=== PATIENT | male | born 1950 | race Caucasian/White ===

== ENCOUNTER 2017-03-17 02:42 | Inpatient (IN) | payer OTHER, MEDICARE ==
[~2017-03-17] VITALS: Ht 167.6 cm; Wt 73.0 kg
--- NOTE | 2017-03-17 02:51 | ED GI/GU/ABDOMINAL COMPLAINT ---
History of Present Illness General Chief Complaint: Abdominal Pain/Flank Pain Stated Complaint: BIBA, ABD PAIN, RECTAL BLEEDING Source: patient, family, EMS Exam Limitations: no limitations Vital Signs & Intake/Output Vital Signs & Intake/Output Vital Signs Date Time Temp Pulse Resp B/P B/P Pulse O2 O2 Flow FiO2 Mean Ox Delivery Rate 03/20 0628 99.1 74 20 136/64 94 Room Air 03/19 2231 99.2 68 20 140/70 94 03/19 1528 98.0 63 20 108/60 94 ED Intake and Output 03/20 0000 03/19 1200 Intake Total 1940 750 Output Total 1500 Balance 440 750 Intake, IV 1025 750 Intake, Oral 915 Number 2 Bowel Movements Output, Urine 1500 Allergies Coded Allergies: No Known Allergies (03/17/17) Reconcile Medications Cyclobenzaprine HCl 7.5 MG TABLET 1 TAB PO DAILY PRN BACKPAIN (Reported) Oxycodone HCl/Acetaminophen (Oxycodone-Acetaminophen 10-325) 10 MG-325 MG TABLET 1 TAB PO TIDPRN CHRONIC PAIN (Reported) Triage Nurses Notes Reviewed? yes Onset: Abrupt Duration: hour(s): (1) Timing: single episode today Location: suprapubic Radiation: no radiation Activities at Onset: sleep No Modifying Factors: none HPI: This is a 66-year-old male who presents via ambulance from home for chief complaint of rectal bleeding 1 prior to arrival. Patient states that he got up in the middle of the night to urinate. When he got back to that he had a sudden onset of cramping suprapubic abdominal pain. He thought he needed to have a bowel movement and went to sit on the toilet. He states he had a few small stools that passed and then had some bright red blood that was spinning on and that well. He is unsure if he had any blood clots. Denies feeling lightheaded. He did feel a bit dizzy. No chest pain or short of breath. No history of previous GI bleeding. 3 weeks ago he had a colonoscopy. At that time he was diagnosed with diverticulosis and he had [address] Harkins. Patient has a family history of colon cancer and gets frequent colonoscopy screenings. Denies any NSAID use. Denies any alcohol abuse. Past History Travel History Traveled to [place] past 21 day No Medical History Any Pertinent Medical History? see below for history Surgical History Surgical History: non-contributory Psychosocial History What is your primary language Mosotho Family History Hx Contributory? No Review of Systems Review of Systems Constitutional: Denies: chills, fever. EENTM: Reports: no symptoms. Respiratory: Denies: cough, short of breath, sputum production. Cardiovascular: Denies: chest pain, palpitations. GI: Reports: abdominal pain. Genitourinary: Reports: no symptoms. Musculoskeletal: Reports: no symptoms. Skin: Reports: no symptoms. Neurological/Psychological: Reports: anxiety. Hematologic/Endocrine: Reports: bleeding. Denies: bruising, polyuria, polydipsia. Immunologic/Allergic: Denies: splenectomy. All Other Systems: Reviewed and Negative Physical Exam Physical Exam General Appearance: well developed/nourished, alert, awake, anxious, mild distress Head: atraumatic, normal appearance Eyes: Bilateral: normal appearance, PERRL, EOMI. Ears, Nose, Throat, Mouth: hearing grossly normal, moist mucous membrane Neck: normal inspection, supple, full range of motion Respiratory: normal breath sounds, chest non-tender, no respiratory distress Cardiovascular: regular rate/rhythm Peripheral Pulses: 2+ radial (R), 2+ radial (L) Gastrointestinal: normal bowel sounds, soft, tenderness (SUPRAPUBIC) Rectal: NO BLOOD ON LAURITA Male Genitals: normal genitalia Extremities: normal range of motion Neurologic/Psych: no motor/sensory deficits, awake, alert, oriented x 3 Skin: intact, normal color, warm/dry Core Measures ACS in differential dx? No Severe Sepsis Present: No Septic Shock Present: No Progress Differential Diagnosis: diverticulitis, DIVERTICULAR BLEED, POST POLYPECTOMY BLEED, COLITIS, MESENTERIC ISCHEMIA Plan of Care: Orders Procedure Date/time Status Nothing by Mouth 03/20 B Active CBC WITHOUT DIFFERENTIAL 03/20 06 Complete Enema 03/20 UNK Active Full Liquid Diet 03/19 D Complete CULTURE,STOOL 03/19 1530 Active Current Medications Sig/Deisy Start time Last Medication Dose Stop Time Status Admin Metronidazole 500 MG Q8 03/19 2200 AC 03/20 (Flagyl) 0559 Ciprofloxacin 500 MG BID 03/18 2200 AC 03/19 (Cipro) 03/22 Hyoscyamine 0.125 MG Q6-PRN PRN 03/18 2100 AC (Levsin) Oxycodone/ 1 TAB Q6P PRN 03/18 1700 AC 03/20 Acetaminophen 0816 (Percocet) Sodium Chloride 1,000 ML Q13H 03/18 1500 AC 03/20 (Normal Saline 0.9%) 0804 Morphine Sulfate 2 MG Q3P PRN 03/18 1100 AC 03/20 (Morphine) 0629 Polyethylene Glycol 17 GM AT BEDTIME 03/17 2200 AC 03/19 (Miralax) 212 Senna/Docusate Sodium 2 TAB AT BEDTIME 03/17 2200 AC 03/19 (Senokot S) 212 Docusate Sodium 100 MG BID 03/17 1000 AC 03/19 (Colace) 212 Acetaminophen 1,000 MG Q8P PRN 03/17 0900 AC 03/20 (Ofirmev) 0431 Cyclobenzaprine HCl 7.5 MG DAILY PRN 03/17 0900 AC (Flexeril 5MG Tab) Diphenhydramine HCl 25 MG Q6P PRN 03/17 0845 AC (Benadryl) Ondansetron HCl 4 MG Q6P PRN 03/17 0845 AC (Zofran) Laboratory Tests 03/20/17 0643: CBC w Diff NO MAN DIFF REQ, RBC 4.67 L, MCV 88.6, MCH 30.0, RDW 13.4, MPV 7.5, Gran % 81.1 H, Lymphocytes % 10.9 L, Monocytes % 6.8, Eosinophils % 1.0, Basophils % 0.2, Absolute Granulocytes 14.7 H, Absolute Lymphocytes 2.0, Absolute Monocytes 1.2 H, Absolute Eosinophils 0.2, Absolute Basophils 0, PUBS MCHC 33.9 Microbiology 03/19 1530 STOOL: Stool Culture - COLB Patient had an episode of dark red bleeding per rectum in the emergency department, scant amount. 4:22 AM PATIENT WITH MULTIPLE AMOUNTS SCANT BRIGHT RED BLOOD PER RECTUM. LABS, CT PENDING. MORPHINE 2 MG IV ORDERED FOR CRAMPING LOWER ABDOMINAL PAIN. DR ORDONEZ #[id number] 6:15 am repaed 6:30 am (GIANNA RIZO,SHELBIE) Diagnostic Imaging: Viewed by Me: CT Scan. Discussed w/RAD: CT Scan. Radiology Impression: PATIENT: MARY PINA PRESENT AGE: 66 PATIENT ACCOUNT NO: [id number] : 51 LOCATION: [facility] ORDERING PHYSICIAN: SHELBIE KATZ MD SERVICE DATE: 03/17/17 EXAM TYPE: CAT - CT ABD & PELVIS W IV CONTRAST EXAMINATION: CT ABDOMEN AND PELVIS WITH CONTRAST CLINICAL INFORMATION: Lower abdominal pain, blood in stool COMPARISON: 09/03/2006 TECHNIQUE: Multidetector volumetric imaging was performed of the abdomen and pelvis before and after the IV administration of 95 mL of Optiray 320 intravenous contrast. Sagittal and coronal reformatted images were obtained on the technologist's workstation. DLP: 427.45 mGy-cm FINDINGS: LUNG BASES: There is mild dependent atelectasis at the lung bases. LIVER, GALLBLADDER, AND BILIARY TREE: The liver is normal in size, shape, and attenuation. No focal hepatic lesion or biliary ductal dilatation is present. The gallbladder is unremarkable with no evidence of radiopaque gallstones, gallbladder wall thickening, or obvious pericholecystic inflammatory changes. PANCREAS: Unremarkable. SPLEEN: Unremarkable. ADRENAL GLANDS: Unremarkable. KIDNEYS AND URETERS: The kidneys are normal in size, shape, and attenuation. Small low- density lesions in the mid and lower right kidney likely represent cysts. No hydronephrosis, hydroureter, or calculi seen. No perinephric stranding. BLADDER: Unremarkable. GASTROINTESTINAL TRACT: There is diffuse wall thickening of the descending colon, consistent with a colitis. There is minimal distal descending and sigmoid diverticulosis without evidence for diverticulitis. No evidence of bowel obstruction. No free fluid or free air is seen. ABDOMINAL WALL: No significant hernia is appreciated. LYMPH NODES: Normal. VASCULAR: There is mild calcification along the aorta. PELVIC VISCERA: Unremarkable. OSSEOUS STRUCTURES: Multilevel endplate osteophytes are present in the spine. IMPRESSION: Diffuse wall thickening of the descending colon, consistent with colitis. DICTATED BY: NATALY GRAY MD DATE/TIME DICTATED:03/17/17534 MED PEDS:[facility] DATE/TIME TRANSCRIBED:03/17/17534 CONFIDENTIAL, DO NOT COPY WITHOUT APPROPRIATE AUTHORIZATION. <Electronically signed in Other Vendor System> SIGNED BY: NATALY GRAY MD 03/17/17 0547 Initial ED EKG: NSR Departure Departure Time of Disposition: 05 Disposition: STILL A PATIENT Condition: Stable Clinical Impression Primary Impression: Ischemic colitis Referrals: RAFFY RIZO,ROULA Odonnell (PCP/Family) Departure Forms: Customer Survey General Discharge Information Admission Note Spoke With: BUTCH ORDONEZ MD Documentation of Exam: Documentation of any treatments & extenuating circumstances including Concerns Regarding Discharge (functional status, medication knowledge or non-compliance, living conditions, etc.) that warrant an admission rather than observation: [IV FLUIDS, CLEAR LIQUID DIET, MONITOR I/O, GI CONSULTATION, OBTAIN GI RECORDS FROM RECENT COLONOSCOPY]
--- NOTE | 2017-03-17 02:53 | NUR ---
PT BIBA FROM HOME C/O ABD PAIN, AND BLOOD IN STOOL. PT HAD COLONOSCOPY 3 WEEKS AGO WITH 5 POLYPS REMOVED. PT WOKE UP TONIGHT TO URINATE AND HAD BM WITH BLOOD NOTICED ON TOILET PAPER. DENIES N/V.
[2017-03-17] MEDS ORDERED: OXYCODONE-ACET1 EAC1 PO (03:04)
--- NOTE | 2017-03-17 03:21 | NUR ---
PT ASSISTED TO COMMODE
--- NOTE | 2017-03-17 03:37 | NUR ---
LABS SENT (1SST,1LAV,1GRAY,1BLUE,1PINK)
--- NOTE | 2017-03-17 03:53 | NUR ---
PER AB DONIS,ZAPATA, PINK, BLUE NEED TO BE REDRAWN
[2017-03-17 03:59] LABS: ABSOLUTE BASOPHIL COUNT 0 /CUMM (0.0-0.2); ABSOLUTE EOSINOPHIL COUNT 0.2 /CUMM (0.0-0.7); ABSOLUTE GRANULOCYTE CT 15.3 /CUMM (1.4-6.5); ABSOLUTE LYMPH COUNT 1.3 /CUMM (1.2-3.4); ABSOLUTE MONOCYTE COUNT 0.9 /CUMM (0.10-0.60); BASOPHIL % 0.1 % (0.0-2.0); EOSINOPHIL % 0.9 % (0-5); GRANULOCYTE % 86.3 % (42.2-75.2); HEMATOCRIT 46.2 % (42-52); MEAN CORPUSCULAR HGB 30.4 PG (27.0-31.0); MEAN CORPUSCULAR HGB CONC 34.4 G/DL (33.0-37.0); MEAN CORPUSCULAR VOLUME 88.2 FL (80.0-94.0); MEAN PLATELET VOLUME 7.7 FL (7.4-10.4); PLATELET COUNT 296 /CUMM (130-400); RBC DISTRIBUTION WIDTH 13.4 % (11.5-14.5); RED BLOOD CELL CT 5.23 /CUMM (4.70-6.10)
--- NOTE | 2017-03-17 04:09 | NUR ---
LABS REDRAWN AND SENT BY THIS [facility]. BLUE,SST,ZAPATA,PINK, LAV
[2017-03-17 04:28] LABS: PTT 28 SEC (25-37)
--- NOTE | 2017-03-17 04:30 | NUR ---
PT MEDICATED WITH MORPHINE PER EMAR. TOLERATED WELL.
[2017-03-17 04:35] LABS: WHITE BLOOD CELL COUNT 17.7 /CUMM (4.8-10.8)
--- NOTE | 2017-03-17 04:48 | NUR ---
IN TO [facility]EEVAL AND UPDATE PT
--- NOTE | 2017-03-17 05:21 | NUR ---
PT TO AND FROM CAT SCAN
--- NOTE | 2017-03-17 05:47 | CT SCAN REPORT ---
EXAMINATION: CT ABDOMEN AND PELVIS WITH CONTRAST CLINICAL INFORMATION: Lower abdominal pain, blood in stool COMPARISON: 09/03/2006 TECHNIQUE: Multidetector volumetric imaging was performed of the abdomen and pelvis before and after the IV administration of 95 mL of Optiray 320 intravenous contrast. Sagittal and coronal reformatted images were obtained on the technologist's workstation. DLP: 427.45 mGy-cm FINDINGS: LUNG BASES: There is mild dependent atelectasis at the lung bases. LIVER, GALLBLADDER, AND BILIARY TREE: The liver is normal in size, shape, and attenuation. No focal hepatic lesion or biliary ductal dilatation is present. The gallbladder is unremarkable with no evidence of radiopaque gallstones, gallbladder wall thickening, or obvious pericholecystic inflammatory changes. PANCREAS: Unremarkable. SPLEEN: Unremarkable. ADRENAL GLANDS: Unremarkable. KIDNEYS AND URETERS: The kidneys are normal in size, shape, and attenuation. Small low-density lesions in the mid and lower right kidney likely represent cysts. No hydronephrosis, hydroureter, or calculi seen. No perinephric stranding. BLADDER: Unremarkable. GASTROINTESTINAL TRACT: There is diffuse wall thickening of the descending colon, consistent with a colitis. There is minimal distal descending and sigmoid diverticulosis without evidence for diverticulitis. No evidence of bowel obstruction. No free fluid or free air is seen. ABDOMINAL WALL: No significant hernia is appreciated. LYMPH NODES: Normal. VASCULAR: There is mild calcification along the aorta. PELVIC VISCERA: Unremarkable. OSSEOUS STRUCTURES: Multilevel endplate osteophytes are present in the spine. IMPRESSION: Diffuse wall thickening of the descending colon, consistent with colitis.
--- NOTE | 2017-03-17 05:54 | NUR ---
IN TO [facility]EE[facility] PT
--- NOTE | 2017-03-17 06:08 | NUR ---
2ND LITER NS INFUSING NOW PT MEDICATED WITH MORPHINE PER EMAR FOR DIFFUSE ABD PAIN 03/27.
--- NOTE | 2017-03-17 06:57 | NUR ---
PT PROVIDED WITH CLEAR LIQUID BREAKFAST TRAY.
--- NOTE | 2017-03-17 07:17 | NUR ---
DR ORDONEZ AT BEDSIDE.
--- NOTE | 2017-03-17 08:34 | History & Physical ---
ROSEMARIE RIZO,DESIRAE 03/17/17 0833: General Information and HPI History of Present Illness: Alek is a 66-year-old man who presents to the emergency department after experiencing an episode of cramping abdominal pain in the suprapubic area, accompanied by some tenesmus after which she proceeded to the toilet to defecate. After passing what he assumed to be a normal bowel movement, the patient noted that there was bright red blood. He only had one episode of hematochezia. There was some associated dizziness after the bowel movement which resolved. He denies melanotic stool, history of NSAID or recent antibiotics use, history of colonic malignancy (recent colonoscopy 3 weeks ago at [facility] revealed 3 diminutive polyps, pathology report pending), personal and family history of thromboembolic disease or bleeding diathesis. On further review, he denies any lightheadedness or dizziness at present, visual changes, cough, ear pain, shortness of breath, chest pain or discomfort, nausea vomiting diarrhea, dysuria or polyuria or any other symptoms after review in detail. 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 Home Who Do You Live With? spouse Services at Home: None Primary Language: Kazakh Smoking Status: Never Smoked ETOH Use: occasional use Illicit Drug Use: denies illicit drug use Employment History Employment Employed Profession/Employer [employer] Review of Systems Review of Systems Constitutional: Denies: see HPI. All Other Systems: Reviewed and Negative Exam & Diagnostic Data Last 24 Hrs of Vital Signs/I&O Vital Signs Date Time Temp Pulse Resp B/P B/P Pulse O2 O2 Flow FiO2 Mean Ox Delivery Rate 04/30 0935 98.0 66 16 134/76 96 Room Air 03/17 0549 97.2 63 18 125/65 96 Room Air 03/17 0548 97.2 60 17 138/88 99 Room Air 03/17 0302 Room Air 03/17 0245 96.3 62 20 142/92 100 Room Air Intake & Output 03/17 1600 03/17 0800 03/17 0000 Intake Total 1000 Output Total Balance 1000 Intake, IV 1000 Patient 160 lb Weight Weight Reported by Patient Measurement Method Physical Exam General Appearance Alert, Oriented X3, Cooperative, No Acute Distress Skin No Rashes, No Breakdown, No Significant Lesion Skin Temp/Moisture Exam: Warm/Dry Sepsis Skin Exam (color): Normal for Ethnicity HEENT Atraumatic, PERRLA Neck Supple Lymphatic Cervical nl Cardiovascular Regular Rate, Normal S1, Normal S2, No Murmurs Lungs Clear to Auscultation, Normal Air Movement Abdomen Normal Bowel Sounds, Soft, No Tenderness, No Hepatospenomegaly, No Masses Neurological Normal Speech, Strength at 5/5 X4 Ext, Normal Tone, Cranial Nerves 3-12 NL Extremities No Clubbing, No Cyanosis, No Edema, Normal Pulses, No Tenderness/ Swelling Vascular Normal Pulses, Pulses Symmetrical Sepsis Peripheral Pulse Location: Radial Sepsis Peripheral Pulse Exam: Normal Sepsis Cap Refill Exam: <2 Sec Rectal No Fissures, No Hemorrhoids Last 24 Hrs of Labs/Justin: Laboratory Tests 03/17/17 0549: Lactic Acid Cancelled 03/17/17 0406: Anion Gap 12, Estimated GFR > 60, BUN/Creatinine Ratio 25.6 H, Glucose 91, Lactic Acid 1.7, Calcium 9.0, Total Bilirubin 1.0, AST 24, ALT 32, Alkaline Phosphatase 65, Total Protein 6.8, Albumin 4.2, Globulin 2.6, Albumin/Globulin Ratio 1.6, Amylase 237 H, Lipase 1270 H, PT 11.0, INR 1.05, APTT 28 03/17/17 0334: CBC w Diff NO MAN DIFF REQ, RBC 5.23, MCV 88.2, MCH 30.4, RDW 13.4, MPV 7.7, Gran % 86.3 H, Lymphocytes % 7.5 L, Monocytes % 5.2, Eosinophils % 0.9, Basophils % 0.1, Absolute Granulocytes 15.3 H, Absolute Lymphocytes 1.3, Absolute Monocytes 0.9 H, Absolute Eosinophils 0.2, Absolute Basophils 0, PUBS MCHC 34.4 Microbiology 03/17 0936 STOOL: Clostridium difficile Toxin A & B - ORD Diagnostic Data EKG Results SINUS RHYTHM Other Results SERVICE DATE: 03/17/17 EXAM TYPE: CAT - CT ABD & PELVIS W IV CONTRAST EXAMINATION: CT ABDOMEN AND PELVIS WITH CONTRAST CLINICAL INFORMATION: Lower abdominal pain, blood in stool COMPARISON: 09/03/2006 TECHNIQUE: Multidetector volumetric imaging was performed of the abdomen and pelvis before and after the IV administration of 95 mL of Optiray 320 intravenous contrast. Sagittal and coronal reformatted images were obtained on the technologist's workstation. DLP: 427.45 mGy-cm FINDINGS: LUNG BASES: There is mild dependent atelectasis at the lung bases. LIVER, GALLBLADDER, AND BILIARY TREE: The liver is normal in size, shape, and attenuation. No focal hepatic lesion or biliary ductal dilatation is present. The gallbladder is unremarkable with no evidence of radiopaque gallstones, gallbladder wall thickening, or obvious pericholecystic inflammatory changes. PANCREAS: Unremarkable. SPLEEN: Unremarkable. ADRENAL GLANDS: Unremarkable. KIDNEYS AND URETERS: The kidneys are normal in size, shape, and attenuation. Small low-density lesions in the mid and lower right kidney likely represent cysts. No hydronephrosis, hydroureter, or calculi seen. No perinephric stranding. BLADDER: Unremarkable. GASTROINTESTINAL TRACT: There is diffuse wall thickening of the descending colon, consistent with a colitis. There is minimal distal descending and sigmoid diverticulosis without evidence for diverticulitis. No evidence of bowel obstruction. No free fluid or free air is seen. ABDOMINAL WALL: No significant hernia is appreciated. LYMPH NODES: Normal. VASCULAR: There is mild calcification along the aorta. PELVIC VISCERA: Unremarkable. OSSEOUS STRUCTURES: Multilevel endplate osteophytes are present in the spine. IMPRESSION: Diffuse wall thickening of the descending colon, consistent with colitis. Assessment/Plan Assessment: Alek is a 66 year old man with a medical hx of Macular "puckering", chronic back pain secondary to degenerative disc disease, vasovagal syncope secondary to pain from chronic back pain that's secondary to the aforementioned degenerative disc disease, who is now admitted with abdominal pain, BRBPR presumed to be due to ischemic colitis given CT findings. He does not have CAD, or peripheral arterial disease, history suggestive of underlying coagulopathy. Differential should include bacterial colitis, hemorrhoidal bleeding, colonic malignancy, pancreatitis. IBD is unlikely. - Problems - LGIB Colitis; Ischemic vs bacterial Chronic back pain 2/2 DJD - Plan - Keep npo for now Type & screen 2 large bore IVs Unasyn 3g q6 Maintenance IVFs Morphine 2mg iv q4h for pain Zofran prn nausea Benadryl, bowel regimen Check amylase/lipase Await Gi and Surgical evaluation DVT ppx alps As Ranked By This Provider Problem List: 1. Ischemic colitis 2. GI bleed Core Measures/Miscellaneous Acute Coronary Syndrome ACS Diagnosis: No Cerebrovascular Accident CVA/TIA Diagnosis: No Congestive Heart Failure CHF Diagnosis: No Venous Thromboembolism VTE Risk Factors: Age > 40 No [facility] VTE prophylaxis d/t: No contraindications No VTE Pharm Prophylaxis d/t: No contraindications VTE Diagnosis: No VTE Type: NONE VTE Confirmed by (Test): NONE Severe Sepsis Severe Sepsis Present: No Septic Shock Septic Shock Present: No Miscellaneous Documentation Attending Case Discussed With: BUTCH ORDONEZ MD Primary Care Physician: ROULA AKBAR MD Patient sees these Specialists n/a Level of Patient Care: General Medicine BUTCH ORDONEZ MD 03/17/17 1808: Attending MD Review Statement Attending Statement Attending MD Statement: examined this patient, discuss w/resident/PA/WIND TURBINE DESIGN ENGINEER, agreed w/resident/PA/WIND TURBINE DESIGN ENGINEER, discussed with family, reviewed EMR data (avail), discussed with nursing, discussed with case mgmt, reviewed images, amended to note Attending Assessment/Plan: 66-year-old male with a history of chronic back pain secondary to degenerative disc disease, vasovagal syncope secondary to chronic back pain and a recent colonoscopy with a diagnosis of diverticulosis and polyps presented with a 1 day history of lower abdominal cramping pain and 2 episodes of bright red bleeding per rectum. Patient is otherwise stable with no more episodes of hematochezia. CT abdomen is suggestive of colitis. GI put on board who ruled out the possibility of post polypectomy bleeding. Given no clear cut history of risk factors for a vasculopathy, however, colitis/ischemic colitis cannot be ruled out. For now we would continue conservative management, will keep him nil by mouth, IV fluids, continue antibiotics, monitor H&H, pain control, DVT prophylaxis, and reevaluation for possible endoscopic interventions. General surgical consult awaited.
--- NOTE | 2017-03-17 08:45 | NUR ---
DESIRAE HOUSTON MD AT BEDSIDE.
[2017-03-17] MEDS ORDERED: CYCLOBENZAPRIN7.5 M1 PO (08:51)
--- NOTE | 2017-03-17 09:05 | NUR ---
bed [id number]
--- NOTE | 2017-03-17 09:41 | NUR ---
REPORT CALLED TO RN. TRANSPORT CALLED.
[2017-03-17 10:20] VITALS: BP 148/80
--- NOTE | 2017-03-17 13:34 | NUR ---
NURSING NOTE: PATIENT ARRIVED TO FLOOR VIA STRETCHER WITH DISTRIBUTION FROM ER. PATIENT A/OX3, STATES PAIN IS ABOUT 3/10, BUT 4 IS NO LONGER TOLERABLE. WILL MEDICATE PER ORDERS. PATIENT INDEPENDENT TO GET INTO BED. WITH PATIENT AT BEDSIDE WITH ALL PATIENT BELONGINGS. VSS. PATIENT NPO PER ORDERS AT THIS TIME. PATIENT AWARE OF RESTRICTION. WILL CONTINUE TO MONITOR.
--- NOTE | 2017-03-17 14:21 | Cons- Gastroenterology ---
General Information and HPI Consulting Request Date of Consult: 03/17/17 Requested By: JOSÉ LUIS RIZO,BUTCH Source of Information: patient, old records Exam Limitations: no limitations History of Present Illness: Alek is a 66-year-old man who presents to the emergency department after experiencing an episode of cramping abdominal pain in the suprapubic area at 1 AM today. This was accompanied by some tenesmus after which she proceeded to the toilet to defecate. After passing what he assumed to be a normal bowel movement , the patient noted that there was bright red blood. He only had one episode of hematochezia. There was some associated dizziness after the bowel movement which resolved. He denies melanotic stool, history of NSAID or recent antibiotics use, history of colonic malignancy (recent colonoscopy 3 weeks ago at [facility] revealed 3 diminutive polyps, pathology report pending), personal and family history of thromboembolic disease or bleeding diathesis. On further review, he denies any lightheadedness or dizziness at present, visual changes, cough, ear pain, shortness of breath, chest pain or discomfort, nausea vomiting diarrhea, dysuria or polyuria or any other symptoms after review in detail. Allergies/Medications Allergies: Coded Allergies: No Known Allergies (03/17/17) Home Med List: Cyclobenzaprine HCl 7.5 MG TABLET 1 TAB PO DAILY PRN BACKPAIN (Reported) Oxycodone HCl/Acetaminophen (Oxycodone-Acetaminophen 10-325) 10 MG-325 MG TABLET 1 TAB PO TIDPRN CHRONIC PAIN (Reported) Current Medications: Current Medications Sig/Deisy Start time Last Medication Dose Route Stop Time Status Admin Acetaminophen 1,000 MG Q8P PRN 03/17 0900 AC 03/17 IV 1045 Ampicillin Sodium/ 0 .STK-MED ONE 03/17 0907 DC Sulbactam Sodium .ROUTE Ampicillin Sodium/ 3,000 MG Q6 03/17 0831 AC 03/17 Sulbactam Sodium IV 0914 Sodium Chloride 100 ML Cyclobenzaprine HCl 7.5 MG DAILY PRN 03/17 0900 AC PO Diphenhydramine HCl 25 MG Q6P PRN 03/17 0845 AC IV Docusate Sodium 100 MG BID 03/17 1000 AC PO Lactated Ringer's 1,000 ML .Q3H20M 03/17 1115 AC 03/17 IV 03/17 1754 1128 Morphine Sulfate 0 .STK-MED ONE 03/17 0907 DC .ROUTE Morphine Sulfate 2 MG Q4P PRN 03/17 0845 AC 03/17 IV 0914 Morphine Sulfate 4 MG ONCE ONE 03/17 0615 DC 03/17 IV 03/17 0616 0608 Morphine Sulfate 0 .STK-MED ONE 03/17 0601 DC .ROUTE Morphine Sulfate 2 MG ONCE ONE 03/17 0430 DC 03/17 IV 03/17 0431 0430 Morphine Sulfate 0 .STK-MED ONE 03/17 0428 DC .ROUTE Ondansetron HCl 4 MG Q6P PRN 03/17 0845 AC IV Polyethylene Glycol 17 GM AT BEDTIME 03/17 2200 AC PO Senna/Docusate Sodium 2 TAB AT BEDTIME 03/17 2200 AC PO Sodium Chloride 1,000 ML Q13H 03/17 1000 DC 03/17 IV 1045 Sodium Chloride 1,000 ML BOLUS ONE 03/17 0615 DC 03/17 IV 03/17 0714 0608 Sodium Chloride 1,000 ML BOLUS ONE 03/17 0300 DC 03/17 IV 03/17 0359 0258 Past History Travel History Traveled to [place] past 21 day No Medical History Blood Transfusion Hx: No Neurological: NONE EENT: NONE Cardiovascular: NONE Respiratory: bronchitis, pneumonia Gastrointestinal: diverticulitis Hepatic: hepatitis B Renal: NONE Musculoskeletal: osteoarthritis, DEGEN DISK DISEASE Psychiatric: NONE Endocrine: NONE Blood Disorders: NONE 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 Home Who Do You Live With? spouse Services at Home: None Primary Language: Croatian Smoking Status: Never Smoked ETOH Use: occasional use Illicit Drug Use: denies illicit drug use Employment History Employment: Employed Profession/Employer: [employer] Review of Systems Review of Systems: At present feeling reasonably well. Has some mild lower abdominal pain. No nausea or vomiting. No presyncope syncope fevers chills. Exam & Diagnostic Data Vital Signs and I&O Vital Signs Date Time Temp Pulse Resp B/P B/P Pulse O2 O2 Flow FiO2 Mean Ox Delivery Rate 03/17 1020 99.3 54 18 148/80 96 Room Air 03/17 0935 98.0 66 16 134/76 96 Room Air 03/17 0549 97.2 63 18 125/65 96 Room Air 03/17 0548 97.2 60 17 138/88 99 Room Air 03/17 0302 Room Air 03/17 0245 96.3 62 20 142/92 100 Room Air Intake & Output 03/17 1600 03/17 0400 03/16 0400 03/15 1600 03/15 0400 Intake Total 1000 Output Total Balance 1000 Intake, IV 1000 Patient 160 lb 160 lb Weight Weight Reported by Patient Reported by Patient Measurement Method Physical Exam General Appearance Alert, Oriented X3, Cooperative, No Acute Distress Skin No Rashes, No Breakdown, No Significant Lesion Skin Temp/Moisture Exam: Warm/Dry Sepsis Skin Exam (color): Normal for Ethnicity HEENT Atraumatic, PERRLA Neck Supple Lymphatic Cervical nl Cardiovascular Regular Rate, Normal S1, Normal S2, No Murmurs Lungs Clear to Auscultation, Normal Air Movement Abdomen Normal Bowel Sounds, Soft, No Tenderness, No Hepatospenomegaly, No Masses. No rebound Neurological Normal Speech, Strength at 5/5 X4 Ext, Normal Tone, Cranial Nerves 3-12 NL Extremities No Clubbing, No Cyanosis, No Edema, Normal Pulses, No Tenderness/ Swelling Vascular Normal Pulses, Pulses Symmetrical Perineum appeared healthy. No external hemorrhoids fistulas or obvious source of bleeding. Physical Exam: x Assessment/Plan Assessment/Recommendations: Patient is a 66-year-old gentleman with a recent colonoscopy and polypectomy who presents with cramping lower abdominal pain and 3-4 episodes of hematochezia. He has not had any further hematochezia in the last 9 hours. In view of the colonoscopy and polypectomy the possibility of post-polypectomy bleeding needs to be considered. However 3 weeks is quite late for such a bleed and in addition to CT scan suggests a colitis. In terms of the colitis and ischemic colitis seems most likely, however the patient does not have any clear history of risk factors for being a vasculopath, no evidence of arrhythmias. Would suggest conservative treatment for now. Nothing by mouth. Continue antibiotics. Will reevaluate in the morning regarding endoscopic interventions. Consult Acknowledgment - Thank you for your consult request.
--- NOTE | 2017-03-17 18:07 | Cons- General Surgery ---
General Information and HPI Consulting Request Date of Consult: 03/17/17 Requested By: BUTCH ORDONEZ MD History of Present Illness: CC: abdominal pain Otherwise healthy 66-year-old nondiabetic nonsmoker who had a colonoscopy in 4-5 polypectomies about a month ago otherwise no recent straining unusual meals or history of rectal bleeding or changes in bowel habits weight or appetite, but he comes in earlier today after being awoken from sleep with severe abdominal pain mostly suprapubic constant, did not radiate, almost fainted when it started, a little better now, there was no nausea and vomiting but he did have some bloody bowel movements, so he came to the ER and was admitted and surgical consult was called as well as GI. The PFSH and ROS were reviewed, denies any bleeding problems or history of C. difficile or other infections, surgical history abdomen none family history Brother had colon cancer. Allergies/Medications Allergies: Coded Allergies: No Known Allergies (03/17/17) Home Med List: Cyclobenzaprine HCl 7.5 MG TABLET 1 TAB PO DAILY PRN BACKPAIN (Reported) Oxycodone HCl/Acetaminophen (Oxycodone-Acetaminophen 10-325) 10 MG-325 MG TABLET 1 TAB PO TIDPRN CHRONIC PAIN (Reported) Current Medications: I reviewed Current Medications Sig/Deisy Start time Last Medication Dose Route Stop Time Status Admin Acetaminophen 1,000 MG Q8P PRN 03/17 0900 AC 03/17 IV 1045 Ampicillin Sodium/ 3,000 MG Q6H 03/17 2000 AC Sulbactam Sodium IV Sodium Chloride 100 ML Ampicillin Sodium/ 0 .STK-MED ONE 03/17 0907 DC Sulbactam Sodium .ROUTE Ampicillin Sodium/ 3,000 MG Q6 03/17 0831 DC 03/17 Sulbactam Sodium IV 1421 Sodium Chloride 100 ML Cyclobenzaprine HCl 7.5 MG DAILY PRN 03/17 0900 AC PO Diphenhydramine HCl 25 MG Q6P PRN 03/17 0845 AC IV Docusate Sodium 100 MG BID 03/17 1000 AC PO Lactated Ringer's 1,000 ML .Q3H20M 03/17 1115 DC 03/17 IV 03/17 1754 1646 Morphine Sulfate 0 .STK-MED ONE 03/17 0907 DC .ROUTE Morphine Sulfate 2 MG Q4P PRN 03/17 0845 AC 03/17 IV 1428 Morphine Sulfate 4 MG ONCE ONE 03/17 0615 DC 03/17 IV 03/17 0616 0608 Morphine Sulfate 0 .STK-MED ONE 03/17 0601 DC .ROUTE Morphine Sulfate 2 MG ONCE ONE 03/17 0430 DC 03/17 IV 03/17 0431 0430 Morphine Sulfate 0 .STK-MED ONE 03/17 0428 DC .ROUTE Ondansetron HCl 4 MG Q6P PRN 03/17 0845 AC IV Polyethylene Glycol 17 GM AT BEDTIME 03/17 2200 AC PO Senna/Docusate Sodium 2 TAB AT BEDTIME 03/17 2200 AC PO Sodium Chloride 1,000 ML Q13H 03/17 1000 DC 03/17 IV 1045 Sodium Chloride 1,000 ML BOLUS ONE 03/17 0615 DC 03/17 IV 03/17 0714 0608 Sodium Chloride 1,000 ML BOLUS ONE 03/17 0300 DC 03/17 IV 03/17 0359 0258 Past History Medical History Blood Transfusion Hx: No Neurological: NONE EENT: NONE Cardiovascular: NONE Respiratory: bronchitis, pneumonia Gastrointestinal: diverticulitis Hepatic: hepatitis B Renal: NONE Musculoskeletal: osteoarthritis, DEGEN DISK DISEASE Psychiatric: NONE Endocrine: NONE Blood Disorders: NONE 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 Home Who Do You Live With? spouse Services at Home: None Primary Language: Colombian Smoking Status: Never Smoked ETOH Use: occasional use Illicit Drug Use: denies illicit drug use Employment History Employment: Employed Profession/Employer: [employer] Review of Systems Review of Systems: Constitutional: No fever, sweats or weight loss ENMT: No sore throat Cardiovascular: No chest pain, palpitations or leg swelling Respiratory: No shortness of breath, cough, or sputum or dyspnea on exertion GI: No GERD or bleeding per rectum : No dysuria or hematuria Musculoskeletal: No new muscle weakness, bone or joint pain Skin / Breast: No jaundice, rashes or itching Psychiatric: No history of drug or alcohol abuse no depression or anxiety Hematologic / lymphatic system: No problems with excessive bleeding, bruising, or blood clots Exam & Diagnostic Data Vital Signs and I&O I reviewed Vital Signs Date Time Temp Pulse Resp B/P B/P Pulse O2 O2 Flow FiO2 Mean Ox Delivery Rate 03/17 1020 99.3 54 18 148/80 96 Room Air 03/17 0935 98.0 66 16 134/76 96 Room Air 03/17 0549 97.2 63 18 125/65 96 Room Air 03/17 0548 97.2 60 17 138/88 99 Room Air 03/17 0302 Room Air 03/17 0245 96.3 62 20 142/92 100 Room Air I reviewed Intake & Output 03/17 1600 03/17 0803/17 0000 03/16 1600 03/16 0800 03/16 0000 Intake Total 900 1000 Output Total Balance 900 1000 Intake, IV 900 1000 Patient 160 lb 160 lb Weight Weight Reported by Patient Reported by Patient Measurement Method Physical Exam: Constitutional: pleasant, no acute distress, conversant Eyes: sclera anicteric ENMT: ears and nose atraumatic, moist mucous membranes, good dentition, no lip lesions Neck: Supple, trachea is midline, no cervical or supraclavicular adenopathy and no palpable thyromegaly Cardiovascular: S1, S2, no murmurs, no peripheral edema Respiratory: clear to auscultation with normal respiratory effort and no intercostal retractions GI: abdomen soft, minimal suprapubic tenderness, nondistended, no palpable hepatosplenomegaly Extremities / lymphatics: symmetrically warm, free range of motion no peripheral edema, no cervical, supraclavicular, axillary, or inguinal adenopathy Musculoskeletal: Did not evaluate gait and station, no digital cyanosis, good muscle strength and tone no atrophy, motor grossly 5 out of 5 throughout Skin: no jaundice, no rashes warm, nondiaphoretic, no areas of erythema or induration Psychiatric: mood and affect are appropriate and alert and oriented to person place and time Last 24 Hours of Labs: I reviewed Laboratory Tests 03/17 03/17 03/17 0549 0406 0334 Chemistry Sodium (137 - 145 mmol/L) 137 Potassium (3.5 - 5.1 mmol/L) 3.3 L Chloride (98 - 107 mmol/L) 102 Carbon Dioxide (22 - 30 mmol/L) 23 Anion Gap (5 - 16) 12 BUN (9 - 20 mg/dL) 23 H Creatinine (0.7 - 1.2 mg/dL) 0.9 Estimated GFR (>60 ml/min) > 60 BUN/Creatinine Ratio (7 - 25 %) 25.6 H Glucose (65 - 99 mg/dL) 91 Lactic Acid (0.7 - 2.1 mmol/L) Cancelled 1.7 Calcium (8.4 - 10.2 mg/dL) 9.0 Total Bilirubin (0.2 - 1.3 mg/dL) 1.0 AST (17 - 59 U/L) 24 ALT (21 - 72 U/L) 32 Alkaline Phosphatase (< 127 U/L) 65 Total Protein (6.3 - 8.2 g/dL) 6.8 Albumin (3.5 - 5.0 g/dL) 4.2 Globulin (1.9 - 4.2 gm/dL) 2.6 Albumin/Globulin Ratio (1.1 - 2.2 %) 1.6 Amylase (30 - 110 U/L) 237 H Lipase (23 - 300 U/L) 1270 H Coagulation PT (9.4 - 12.5 SEC) 11.0 INR (0.90 - 1.17) 1.05 APTT (25 - 37 SEC) 28 Hematology CBC w Diff NO MAN DIFF REQ WBC (4.8 - 10.8 /CUMM) 17.7 H RBC (4.70 - 6.10 /CUMM) 5.23 Hgb (14.0 - 18.0 G/DL) 15.9 Hct (42 - 52 %) 46.2 MCV (80.0 - 94.0 FL) 88.2 MCH (27.0 - 31.0 PG) 30.4 RDW (11.5 - 14.5 %) 13.4 Plt Count (130 - 400 /CUMM) 296 MPV (7.4 - 10.4 FL) 7.7 Gran % (42.2 - 75.2 %) 86.3 H Lymphocytes % (20.5 - 51.1 %) 7.5 L Monocytes % (1.7 - 9.3 %) 5.2 Eosinophils % (0 - 5 %) 0.9 Basophils % (0.0 - 2.0 %) 0.1 Absolute Granulocytes (1.4 - 6.5 /CUMM) 15.3 H Absolute Lymphocytes (1.2 - 3.4 /CUMM) 1.3 Absolute Monocytes (0.10 - 0.60 /CUMM) 0.9 H Absolute Eosinophils (0.0 - 0.7 /CUMM) 0.2 Absolute Basophils (0.0 - 0.2 /CUMM) 0 PUBS MCHC (33.0 - 37.0 G/DL) 34.4 Assessment/Plan Assessment/Plan Studies I reviewed today's CT scan on PACS myself and shows a non-dilated but thickened descending colon no free fluid or bowel obstruction. Elevated amylase and lipase but otherwise normal LFTs noted Impression is lower GI bleed, which does not appear to be hemodynamically significant or ongoing, elevated amylase lipase, slight thickening of descending colon and leukocytosis he might have colitis agree with empiric antibiotics may be somehow related to recent colonoscopy, because otherwise there are no obvious clues to the etiology, but overall there is no signs of obstruction or perforation requiring surgery at the present time usually this is managed medically. Continue present care repeat all labs in the morning. Problem List: 1. GI bleed 2. Colitis 3. Abdominal pain Consult Acknowledgment - Thank you for your consult request.
[2017-03-17 21:55] VITALS: BP 122/80
[2017-03-18 07:35] VITALS: BP 130/78
[2017-03-18 08:05] LABS: ABSOLUTE BASOPHIL COUNT 0.1 /CUMM (0.0-0.2); ABSOLUTE EOSINOPHIL COUNT 0.1 /CUMM (0.0-0.7); ABSOLUTE GRANULOCYTE CT 14.5 /CUMM (1.4-6.5); ABSOLUTE LYMPH COUNT 1.3 /CUMM (1.2-3.4); ABSOLUTE MONOCYTE COUNT 1.2 /CUMM (0.10-0.60); BASOPHIL % 0.5 % (0.0-2.0); EOSINOPHIL % 0.8 % (0-5); HEMATOCRIT 42.1 % (42-52); MEAN CORPUSCULAR HGB 29.8 PG (27.0-31.0); MEAN CORPUSCULAR HGB CONC 33.5 G/DL (33.0-37.0); MEAN CORPUSCULAR VOLUME 88.8 FL (80.0-94.0); MEAN PLATELET VOLUME 7.7 FL (7.4-10.4); PLATELET COUNT 250 /CUMM (130-400); RBC DISTRIBUTION WIDTH 13.3 % (11.5-14.5); RED BLOOD CELL CT 4.74 /CUMM (4.70-6.10); WHITE BLOOD CELL COUNT 17.3 /CUMM (4.8-10.8)
--- NOTE | 2017-03-18 08:17 | PN- Housestaff ---
EMMANUEL RIZO,JOSE DE JESUS 03/18/17 0816: Subjective Follow-up For: Colitis BRBPR Subjective: Patient seen and examined. He is seen sitting in a chair in the common area speaking with his . He appears to be in no acute distress. He reports that his adbominal pain is well controlled, stating its only about "3-/10". He denies any further bright red blood per rectum. He states that he is hungry and is requesting to eat. Additionally he denies any fever, chills, chest pain, shortness of breath, nausea, vomiting, diarrhea. No overnight events reported. Review of Systems Constitutional: Reports: see HPI. Objective Last 24 Hrs of Vital Signs/I&O Vital Signs Date Time Temp Pulse Resp B/P B/P Pulse O2 O2 Flow FiO2 Mean Ox Delivery Rate 03/18 1408 98.2 59 20 124/67 94 Room Air 03/18 0735 98.2 64 20 130/78 95 Room Air 03/17 2155 99.2 65 20 122/80 94 Intake & Output 03/18 1600 03/18 0800 03/18 0000 Intake Total 650 800 35210 Output Total Balance 650 800 02437 Intake, IV 650 800 22960 Physical Exam General Appearance: Alert, Oriented X3, Cooperative, No Acute Distress Other Physical Findings: General- well developed, well nourished elderly man in no acute distress HEENT- NCAT, PERRL, EOMI, anicteric sclera CVS- S1, S2 w/o m/g/r Resp - CTA bilaterally GI- Soft, nontender, nondistended, bowel sounds intact Neuro- Awake and alert, CN II - XII grossly intact Ext- normal pulses, no cyanosis/clubbing/edema Current Medications: Current Medications Sig/Deisy Start time Last Medication Dose Route Stop Time Status Admin Acetaminophen 325 MG .STK-MED ONE 03/18 0425 DC PO 03/18 042 Acetaminophen 1,000 MG Q8P PRN 03/17 09 AC 03/18 IV 1325 Ampicillin Sodium/ 3,000 MG Q6H 03/17 2000 DC 03/18 Sulbactam Sodium IV 1423 Sodium Chloride 100 ML Ciprofloxacin 500 MG BID 03/18 2200 AC PO 03/22 2159 Cyclobenzaprine HCl 7.5 MG DAILY PRN 03/17 09 AC PO Diphenhydramine HCl 25 MG Q6P PRN 03/17 0845 AC IV Docusate Sodium 100 MG BID 03/17 1000 AC PO Metronidazole 500 MG IQ8 03/19 0000 AC N/A 1 UNIT IV Morphine Sulfate 2 MG Q3P PRN 03/18 1100 AC 03/18 IV 1833 Morphine Sulfate 2 MG Q4P PRN 03/17 0845 DC 03/18 IV 0620 Ondansetron HCl 4 MG Q6P PRN 03/17 0845 AC IV Oxycodone/ 1 TAB Q6P PRN 03/18 1700 AC 03/18 Acetaminophen PO 1750 Patient Medication 1 ED .STK-MED ONE 03/18 1401 [place] Teaching ED 03/18 1402 Polyethylene Glycol 17 GM AT BEDTIME 03/17 2200 AC PO Senna/Docusate Sodium 2 TAB AT BEDTIME 03/17 2200 AC PO Sodium Chloride 1,000 ML Q13H 03/18 1500 AC 03/18 IV 1400 Sodium Chloride 1,000 ML Q13H 03/17 2100 DC 03/17 IV 03/18 0959 2222 Last 24 Hrs of Lab/Justin Results Last 24 Hrs of Labs/Mics: Laboratory Tests 03/18/17 0618: Anion Gap 10, Estimated GFR > 60, BUN/Creatinine Ratio 11.1, CBC w Diff NO MAN DIFF REQ, RBC 4.74, MCV 88.8, MCH 29.8, RDW 13.3, MPV 7.7, Gran % 84.1 H, Lymphocytes % 7.7 L, Monocytes % 6.9, Eosinophils % 0.8, Basophils % 0.5, Absolute Granulocytes 14.5 H, Absolute Lymphocytes 1.3, Absolute Monocytes 1.2 H, Absolute Eosinophils 0.1, Absolute Basophils 0.1, PUBS MCHC 33.5 Microbiology 03/18 1730 STOOL: Cryptosporidium Antigen - RECD 03/18 1730 STOOL: Giardia Antigen (JUSTIN) - RECD 03/18 1730 STOOL: Clostridium difficile Toxin A & B - RECD Assessment/Plan Assessment: Patient was kept NPO overnight in anticipation of a potential endoscopic procedure. This morning patient reports that his pain is well controlled on the current medication regimen. He otherwise feels fine and is requesting to eat. His white blood cell count remains elevated while on intravenous antibiotics. Dr. Klaus Zamora was updated in regards to these findings and it was determiend that patient should be trialed on a clear liquid diet that may be advanced as tolerated and that his antibiotics should be converted to Ciprofloxacin/Flagyl. There are no immediate plans for any endoscopic procedure. Colitis / Abdominal Pain / BRBPR / Possible Pancreatitis Patient with no known gastrointestinal history but with family history of colon cancer seen for evaluation of cramping suprapubic abdominal pain and bright red blood per rectum. Patient reportedly underwent a screening colonoscopy three weeks prior to admission at [facility] where multiple polyps were removed with pathology results pending. Vital signs upon initial evaluation were within limits. Physical examination was unremarkable, including rectal examination. CBC demonstrated WBC 17.7, Hgb/Hct 15.9/46.2, and normal serum chemistries, Lipase 1270. CT Abd/Pelvis with IV contrast demonstrated diffuse wall thickening of the descending colon consistent with colitis. Patients symptoms, presentation, and imaging findings are highly suggestive of colitis, ischemic versus infectious. Patient does not have any identifiable cardiovascular risk factors predisposing him to ischemic colitis, however it must be ruled out. -General Medicine -2 large bore IV -Type & cross -Transfuse as needed, maintain hgb > 7.0 -NS @ 75mL/hr -Unasyn discontinued -Ciprofloxacin 500mg PO BID started -Metronidazole 500mg IV Q8H started -Zofran 4mg IV Q6H PRN nausea -Clear liquid diet, advance as tolerated -GI consult following -GS consult following -Follow up cultures & sensitivies -Follow up C. diff & stool ova/parasites Pain Plain-Acetaminophen/Morphine Diet-As above DVT PPx-ALPS/Ambulation Code Status-FULL CODE Problem List: 1. Colitis Pain Ratin Pain Location: Abdomen Pain Goal: Remain pain free Pain Plan: See assessment Tomorrow's Labs & Rationales: CBC-leukocytosis FIDELIA RIZO,EAN 03/18/17 1258: Attending MD Review Statement Attending Statement Attending MD Statement: examined this patient, discuss w/resident/PA/CPHT, agreed w/resident/PA/CPHT, discussed with family, reviewed EMR data (avail), discussed with nursing, discussed with case mgmt, amended to note Attending Assessment/Plan: Patient seen and examined. Lying comfortably in bed not in acute distress. Reports feeling better this morning. Apparently had tried liquids last evening but did not tolerate this. He developed more cramping. He reports feeling better today. Denies nausea vomiting. Reports only mild abdominal cramping. On examination abdomen is nondistended, soft and nontender with normal bowel sounds. Recommendations: -We'll continue nothing by mouth status for now with IV hydration and IV antibiotic therapy. -Awaiting reevaluation by the gastroenterology service regarding possible repeat endoscopic evaluation. -Follow-up pathology reports of the polypectomy from [facility]. -Mobilize patient as tolerated. -He is currently satisfied with his current pain regimen. His pain does go as high as 7/10 but he reports relief with the use of current therapy. -Repeat CBCs and chemistry in 48 hours to ensure white cell count is improving and electrolyte levels are stable.
[2017-03-18 09:29] LABS: GRANULOCYTE % 84.1 % (42.2-75.2)
[2017-03-18 14:08] VITALS: BP 124/67
--- NOTE | 2017-03-18 20:52 | PN- Gastroenterology ---
Assessment/Plan Assessment/Recommendations: Hematochezia with stable H/H, abdominal pain. Imaging suggest colitis. Differential diagnosis includes infectious, ischemia, etc. Recommendations * Clear liquid diet * Change antibiotics to Cipro 500 mg by mouth twice a day, metronidazole 500 mg by mouth 3 times a day. * Morning CBC * Stool culture, C. difficile toxin * Anticholinergic such as the mean 10-20 mg by mouth 4 times a day when necessary, or hyoscyamine 0.125 mg to 0.25 mg by mouth 4 times a day when necessary * Possible flexible sigmoidoscopy if without improvement Subjective Subjective: Continues to have crampy lower abdominal pain which has improved. No nausea or vomiting. No upper abdominal pain. One passage of blood per rectum today. Objective Vital Signs and I&Os Vital Signs Date Time Temp Pulse Resp B/P B/P Pulse O2 O2 Flow FiO2 Mean Ox Delivery Rate 03/18 1408 98.2 59 20 124/67 94 Room Air 03/18 0735 98.2 64 20 130/78 95 Room Air 03/17 2155 99.2 65 20 122/80 94 Intake & Output 03/18 1600 03/18 0400 03/17 1600 03/17 0400 03/16 1600 03/16 0400 Intake Total 1450 88817 900 1000 Output Total Balance 1450 65467 900 1000 Intake, IV 1450 89730 900 1000 Patient 160 lb 160 lb Weight Weight Reported by Patient Reported by Patient Measurement Method Physical Exam: Skin normal with normal turgor. Pulses intact. Head and neck normal, with anicteric sclera. Abdomen is soft and nondistended with normal bowel sounds; there is left lower quadrant tenderness, but no mass or fullness. Current Medications: Current Medications Sig/Deisy Start time Last Medication Dose Route Stop Time Status Admin Acetaminophen 325 MG .STK-MED ONE 03/18 0425 DC PO 03/18 0426 Acetaminophen 1,000 MG Q8P PRN 03/17 09 AC 03/18 IV 1325 Ampicillin Sodium/ 3,000 MG Q6H 03/17 2000 DC 03/18 Sulbactam Sodium IV 1423 Sodium Chloride 100 ML Ciprofloxacin 500 MG BID 03/18 2200 AC PO 03/22 2159 Cyclobenzaprine HCl 7.5 MG DAILY PRN 03/17 0900 AC PO Diphenhydramine HCl 25 MG Q6P PRN 03/17 0845 AC IV Docusate Sodium 100 MG BID 03/17 1000 AC PO Metronidazole 500 MG IQ8 03/19 0000 AC N/A 1 UNIT IV Morphine Sulfate 2 MG Q3P PRN 03/18 1100 AC 03/18 IV 1833 Morphine Sulfate 2 MG Q4P PRN 03/17 0845 DC 03/18 IV 0620 Ondansetron HCl 4 MG Q6P PRN 03/17 0845 AC IV Oxycodone/ 1 TAB Q6P PRN 03/18 1700 AC 03/18 Acetaminophen PO 1750 Patient Medication 1 ED .STK-MED ONE 03/18 1401 TX Teaching ED 03/18 1402 Polyethylene Glycol 17 GM AT BEDTIME 03/17 2200 AC PO Senna/Docusate Sodium 2 TAB AT BEDTIME 03/17 2200 AC PO Sodium Chloride 1,000 ML Q13H 03/18 1500 AC 03/18 IV 1400 Sodium Chloride 1,000 ML Q13H 03/17 2100 DC 03/17 IV 03/18 0959 2222 Results Pertinent Lab Results: Laboratory Tests 03/18 03/17 03/17 0618 0549 0406 Chemistry Sodium (137 - 145 mmol/L) 140 137 Potassium (3.5 - 5.1 mmol/L) 3.6 3.3 L Chloride (98 - 107 mmol/L) 104 102 Carbon Dioxide (22 - 30 mmol/L) 26 23 Anion Gap (5 - 16) 10 12 BUN (9 - 20 mg/dL) 10 23 H Creatinine (0.7 - 1.2 mg/dL) 0.9 0.9 Estimated GFR (>60 ml/min) > 60 > 60 BUN/Creatinine Ratio (7 - 25 %) 11.1 25.6 H Glucose (65 - 99 mg/dL) 91 Lactic Acid (0.7 - 2.1 mmol/L) Cancelled 1.7 Calcium (8.4 - 10.2 mg/dL) 9.0 Total Bilirubin (0.2 - 1.3 mg/dL) 1.0 AST (17 - 59 U/L) 24 ALT (21 - 72 U/L) 32 Alkaline Phosphatase (< 127 U/L) 65 Total Protein (6.3 - 8.2 g/dL) 6.8 Albumin (3.5 - 5.0 g/dL) 4.2 Globulin (1.9 - 4.2 gm/dL) 2.6 Albumin/Globulin Ratio (1.1 - 2.2 %) 1.6 Amylase (30 - 110 U/L) 237 H Lipase (23 - 300 U/L) 1270 H Coagulation PT (9.4 - 12.5 SEC) 11.0 INR (0.90 - 1.17) 1.05 APTT (25 - 37 SEC) 28 Hematology CBC w Diff NO MAN DIFF REQ WBC (4.8 - 10.8 /CUMM) 17.3 H RBC (4.70 - 6.10 /CUMM) 4.74 Hgb (14.0 - 18.0 G/DL) 14.1 Hct (42 - 52 %) 42.1 MCV (80.0 - 94.0 FL) 88.8 MCH (27.0 - 31.0 PG) 29.8 RDW (11.5 - 14.5 %) 13.3 Plt Count (130 - 400 /CUMM) 250 MPV (7.4 - 10.4 FL) 7.7 Gran % (42.2 - 75.2 %) 84.1 H Lymphocytes % (20.5 - 51.1 %) 7.7 L Monocytes % (1.7 - 9.3 %) 6.9 Eosinophils % (0 - 5 %) 0.8 Basophils % (0.0 - 2.0 %) 0.5 Absolute Granulocytes (1.4 - 6.5 /CUMM) 14.5 H Absolute Lymphocytes (1.2 - 3.4 /CUMM) 1.3 Absolute Monocytes (0.10 - 0.60 /CUMM) 1.2 H Absolute Eosinophils (0.0 - 0.7 /CUMM) 0.1 Absolute Basophils (0.0 - 0.2 /CUMM) 0.1 PUBS MCHC (33.0 - 37.0 G/DL) 33.5 03/17 0334 Hematology CBC w Diff NO MAN DIFF REQ WBC (4.8 - 10.8 /CUMM) 17.7 H RBC (4.70 - 6.10 /CUMM) 5.23 Hgb (14.0 - 18.0 G/DL) 15.9 Hct (42 - 52 %) 46.2 MCV (80.0 - 94.0 FL) 88.2 MCH (27.0 - 31.0 PG) 30.4 RDW (11.5 - 14.5 %) 13.4 Plt Count (130 - 400 /CUMM) 296 MPV (7.4 - 10.4 FL) 7.7 Gran % (42.2 - 75.2 %) 86.3 H Lymphocytes % (20.5 - 51.1 %) 7.5 L Monocytes % (1.7 - 9.3 %) 5.2 Eosinophils % (0 - 5 %) 0.9 Basophils % (0.0 - 2.0 %) 0.1 Absolute Granulocytes (1.4 - 6.5 /CUMM) 15.3 H Absolute Lymphocytes (1.2 - 3.4 /CUMM) 1.3 Absolute Monocytes (0.10 - 0.60 /CUMM) 0.9 H Absolute Eosinophils (0.0 - 0.7 /CUMM) 0.2 Absolute Basophils (0.0 - 0.2 /CUMM) 0 PUBS MCHC (33.0 - 37.0 G/DL) 34.4
[2017-03-18 22:37] VITALS: BP 110/72
[2017-03-19 06:30] VITALS: BP 100/56
--- NOTE | 2017-03-19 07:12 | PN- Housestaff ---
EMMANUEL RIZO,JOSE DE JESUS 03/19/17 0712: Subjective Follow-up For: Colitis BRBPR Subjective: Patient seen and examined. He is seen lying flat in bed resting comfortably. He appears to be in no acute distress. He reports that his abdominal pain is well controlled as it is only about a "2-3/10". He had an episode of further rectal bleeding last night, but denies any further episodes overnight or this morning. He otherwise feels well and is requesting to eat. Additionally he denies any fever, chills, chest pain, shortness of breaht, nausea, vomiting, diarrhea. No overnight events reported. Review of Systems Constitutional: Reports: see HPI. Objective Last 24 Hrs of Vital Signs/I&O Vital Signs Date Time Temp Pulse Resp B/P B/P Pulse O2 O2 Flow FiO2 Mean Ox Delivery Rate 03/19 1528 98.0 63 20 108/60 94 03/19 0630 98.9 60 20 100/56 95 Room Air 03/18 2237 98.4 63 20 110/72 94 Room Air Intake & Output 03/19 1600 03/19 0800 03/19 0000 Intake Total 750 225 Output Total Balance 750 225 Intake, IV 750 225 Physical Exam General Appearance: Alert, Oriented X3, Cooperative, No Acute Distress Other Physical Findings: General- well developed, well nourished elderly man in no acute distress HEENT- NCAT, PERRL, EOMI, anicteric sclera CVS- S1, S2 w/o m/g/r Resp - CTA bilaterally GI- Soft, nontender, nondistended, bowel sounds intact Neuro- Awake and alert, CN II - XII grossly intact Ext- normal pulses, no cyanosis/clubbing/edema Current Medications: Current Medications Sig/Deisy Start time Last Medication Dose Route Stop Time Status Admin Acetaminophen 1,000 MG Q8P PRN 03/17 0900 AC 03/18 IV 1325 Ampicillin Sodium/ 3,000 MG Q6H 03/17 2000 DC 03/18 Sulbactam Sodium IV 1423 Sodium Chloride 100 ML Ciprofloxacin 500 MG BID 03/18 2200 AC 03/19 PO 03/22 2159 0819 Cyclobenzaprine HCl 7.5 MG DAILY PRN 03/17 0900 AC PO Diphenhydramine HCl 25 MG Q6P PRN 03/17 0845 AC IV Docusate Sodium 100 MG BID 03/17 1000 AC 03/19 PO 0819 Hyoscyamine 0.125 MG Q6-PRN PRN 03/18 2100 AC PO Metronidazole 500 MG Q8 03/19 2200 AC PO Metronidazole 500 MG IQ8 03/19 0000 DC 03/19 N/A 1 UNIT IV 1119 Morphine Sulfate 2 MG Q3P PRN 03/18 1100 AC 03/18 IV 1833 Ondansetron HCl 4 MG Q6P PRN 03/17 0845 AC IV Oxycodone/ 1 TAB Q6P PRN 03/18 1700 AC 03/19 Acetaminophen PO 1608 Polyethylene Glycol 17 GM AT BEDTIME 03/17 2200 AC PO Senna/Docusate Sodium 2 TAB AT BEDTIME 03/17 220 AC PO Sodium Chloride 1,000 ML Q13H 03/18 1500 AC 03/19 IV 1607 Last 24 Hrs of Lab/Justin Results Last 24 Hrs of Labs/Mics: Laboratory Tests 03/19/17 0753: Anion Gap 16, Estimated GFR > 60, BUN/Creatinine Ratio 15.6, Magnesium 1.8, CBC w Diff NO MAN DIFF REQ, RBC 4.62 L, MCV 89.3, MCH 29.8, RDW 13.3, MPV 7.8, Gran % 86.2 H, Lymphocytes % 8.1 L, Monocytes % 4.8, Eosinophils % 0.6, Basophils % 0.3, Absolute Granulocytes 17.9 H, Absolute Lymphocytes 1.7, Absolute Monocytes 1.0 H, Absolute Eosinophils 0.1, Absolute Basophils 0.1, PUBS MCHC 33.4 Microbiology 03/19 1530 STOOL: Stool Culture - COLB 03/18 1730 STOOL: Cryptosporidium Antigen - COMP 03/18 1730 STOOL: Giardia Antigen (JUSTIN) - COMP 03/18 1730 STOOL: Clostridium difficile Toxin A & B - COMP Assessment/Plan Assessment: Patient's abdominal pain is well controlled on the current regimen. His antibiotics were converted last night from intravenous unasyn to oral ciprofloxacin/flagyl. CBC this morning demonstrated a worsening white blood cell count. He is started on a clear liquid diet today, but will be kept NPO overnight for a possible flexible sigmoidoscopy in the morning. Colitis / Abdominal Pain / BRBPR / Possible Pancreatitis Patient with no known gastrointestinal history but with family history of colon cancer seen for evaluation of cramping suprapubic abdominal pain and bright red blood per rectum. Patient reportedly underwent a screening colonoscopy three weeks prior to [facility] where multiple polyps were removed with pathology results pending. Vital signs upon initial evaluation were within limits. Physical examination was unremarkable, including rectal examination. CBC demonstrated WBC 17.7, Hgb/Hct 15.9/46.2, and normal serum chemistries, Lipase 1270. CT Abd/Pelvis with IV contrast demonstrated diffuse wall thickening of the descending colon consistent with colitis. Patients symptoms, presentation, and imaging findings are highly suggestive of colitis, ischemic versus infectious. Patient does not have any identifiable cardiovascular risk factors predisposing him to ischemic colitis, however it must be ruled out. -General Medicine -2 large bore IV -Type & cross -Transfuse as needed, maintain hgb > 7.0 -NS @ 75mL/hr -Unasyn discontinued -Ciprofloxacin 500mg PO BID -Metronidazole 500mg PO Q8H -Zofran 4mg IV Q6H PRN nausea -Clear liquid diet, NPO overnight -GI consult following -GS consult following -Follow up cultures & sensitivies -Follow up C. diff & stool ova/parasites Pain Plain-Acetaminophen/Morphine Diet-As above DVT PPx-ALPS/Ambulation Code Status-FULL CODE Problem List: 1. Colitis Pain Ratin Pain Location: Abdomen Pain Goal: Pain 7 or less Pain Plan: See assessment Tomorrow's Labs & Rationales: CESAR MISTRY MD,EAN 03/19/17 1016: Attending Review Statement Attending Statement Attending Statement: examined this patient, discuss w/resident/PA/PUBLIC HEALTH PROGRAM MANAGER, agreed w/resident/PA/PUBLIC HEALTH PROGRAM MANAGER, reviewed EMR data (avail), discussed with nursing, discussed with case mgmt, amended to note Attending Assessment/Plan: Patient seen and examined. He declined to attempt a clear liquid diet yesterday evening but did so this morning. He is tolerating it. Denies any nausea vomiting. Reports mild abdominal cramping. No bowel movement so far today. On examination abdomen is nondistended soft with very mild tenderness in the left lower quadrant. Recommendations: -Continue clear liquid diet as tolerated today. -Continue oral antibiotics regimen as recommended by the GI service. -Patient has been restarted on Percocet which he takes for chronic low back pain. -Anticipate discharge next 24-48 hours if patient continues to improve clinically and continues to tolerate his diet. Attempt advancing diet further tomorrow morning.
--- NOTE | 2017-03-19 08:12 | PN- Gastroenterology ---
Assessment/Plan Assessment/Recommendations: Hematochezia with heretofore stable H/H; improvement in abdominal pain. Imaging suggest colitis. Differential diagnosis includes infectious, ischemia, etc. As discussed with patient and his , this is very unlikely to be a post- polypectomy bleed given the time interval, leukocytosis and pain, as well as no drop in hemoglobin. Recommendations * Clear liquid breakfast, advance to full liquids as tolerated. * Continue Cipro 500 mg by mouth twice a day; change metronidazole to 500 mg by mouth 3 times a day. * Await today's CBC * Stool culture (rather than parasite antigens), await C. difficile toxin * Off for hyoscyamine to patient rather than narcotics * Possible flexible sigmoidoscopy tomorrow if without improvement; change diet to clear liquids at midnight tonight in anticipation of possible procedure Subjective Subjective: Crampy pain improved this morning. Tolerated water by mouth. No nausea or vomiting. No bowel movements/blood per rectum since seen last night. Objective Vital Signs and I&Os Vital Signs Date Time Temp Pulse Resp B/P B/P Pulse O2 O2 Flow FiO2 Mean Ox Delivery Rate 03/19 630 98.9 60 20 100/56 95 Room Air 03/18 2237 98.4 63 20 110/72 94 Room Air 03/18 1408 98.2 59 20 124/67 94 Room Air Intake & Output 03/19 1600 03/19 0400 03/18 1600 03/18 0400 03/17 1600 03/17 0400 Intake Total 755 260 2201 86516 900 1000 Output Total Balance 045 294 4443 35600 900 1000 Intake, IV 313 295 8206 24830 900 1000 Patient 160 lb 160 lb Weight Weight Reported by Patient Reported by Patient Measurement Method Physical Exam: Sclera anicteric. Abdomen soft and nondistended; minor tenderness on palpation of left lower quadrant, improved. No edema. Pulses intact. Current Medications: Current Medications Sig/Deisy Start time Last Medication Dose Route Stop Time Status Admin Acetaminophen 1,000 MG Q8P PRN 03/17 900 AC 03/18 IV 1325 Ampicillin Sodium/ 3,000 MG Q6H 03/17 2000 DC 03/18 Sulbactam Sodium IV 1423 Sodium Chloride 100 ML Ciprofloxacin 500 MG BID 03/18 2200 AC 03/18 PO 03/22 215 215 Cyclobenzaprine HCl 7.5 MG DAILY PRN 04/30 0900 AC PO Diphenhydramine HCl 25 MG Q6P PRN 03/17 0845 AC IV Docusate Sodium 100 MG BID 03/17 1000 AC PO Hyoscyamine 0.125 MG Q6-PRN PRN 03/18 2100 AC PO Metronidazole 500 MG IQ8 03/19 0000 AC 03/19 N/A 1 UNIT IV 0020 Morphine Sulfate 2 MG Q3P PRN 03/18 1100 AC 03/18 IV 1833 Morphine Sulfate 2 MG Q4P PRN 03/17 0845 DC 03/18 IV 0620 Ondansetron HCl 4 MG Q6P PRN 03/17 0845 AC IV Oxycodone/ 1 TAB Q6P PRN 03/18 1700 AC 03/18 Acetaminophen PO 2347 Patient Medication 1 ED .STK-MED ONE 03/18 1401 MI Teaching ED 03/18 1402 Polyethylene Glycol 17 GM AT BEDTIME 03/17 2200 AC PO Senna/Docusate Sodium 2 TAB AT BEDTIME 03/17 2200 AC PO Sodium Chloride 1,000 ML Q13H 03/18 1500 AC 03/19 IV 0356 Sodium Chloride 1,000 ML Q13H 03/17 2100 DC 03/17 IV 03/18 0959 2222 Results Pertinent Lab Results: Laboratory Tests 03/19 03/18 03/17 0753 0618 0549 Chemistry Sodium (137 - 145 mmol/L) Pending 140 Potassium (3.5 - 5.1 mmol/L) Pending 3.6 Chloride (98 - 107 mmol/L) Pending 104 Carbon Dioxide (22 - 30 mmol/L) Pending 26 Anion Gap (5 - 16) Pending 10 BUN (9 - 20 mg/dL) Pending 10 Creatinine (0.7 - 1.2 mg/dL) Pending 0.9 Estimated GFR (>60 ml/min) > 60 BUN/Creatinine Ratio (7 - 25 %) Pending 11.1 Lactic Acid Cancelled Magnesium Pending Hematology CBC w Diff Pending NO MAN DIFF REQ WBC (4.8 - 10.8 /CUMM) Pending 17.3 H RBC (4.70 - 6.10 /CUMM) Pending 4.74 Hgb (14.0 - 18.0 G/DL) Pending 14.1 Hct (42 - 52 %) Pending 42.1 MCV (80.0 - 94.0 FL) Pending 88.8 MCH (27.0 - 31.0 PG) Pending 29.8 RDW (11.5 - 14.5 %) Pending 13.3 Plt Count (130 - 400 /CUMM) Pending 250 MPV (7.4 - 10.4 FL) Pending 7.7 Gran % (42.2 - 75.2 %) 84.1 H Lymphocytes % (20.5 - 51.1 %) 7.7 L Monocytes % (1.7 - 9.3 %) 6.9 Eosinophils % (0 - 5 %) 0.8 Basophils % (0.0 - 2.0 %) 0.5 Absolute Granulocytes (1.4 - 6.5 /CUMM) 14.5 H Absolute Lymphocytes (1.2 - 3.4 /CUMM) 1.3 Absolute Monocytes (0.10 - 0.60 /CUMM) 1.2 H Absolute Eosinophils (0.0 - 0.7 /CUMM) 0.1 Absolute Basophils (0.0 - 0.2 /CUMM) 0.1 PUBS MCHC (33.0 - 37.0 G/DL) Pending 33.5 03/17 03/17 0406 0334 Chemistry Sodium (137 - 145 mmol/L) 137 Potassium (3.5 - 5.1 mmol/L) 3.3 L Chloride (98 - 107 mmol/L) 102 Carbon Dioxide (22 - 30 mmol/L) 23 Anion Gap (5 - 16) 12 BUN (9 - 20 mg/dL) 23 H Creatinine (0.7 - 1.2 mg/dL) 0.9 Estimated GFR (>60 ml/min) > 60 BUN/Creatinine Ratio (7 - 25 %) 25.6 H Glucose (65 - 99 mg/dL) 91 Lactic Acid (0.7 - 2.1 mmol/L) 1.7 Calcium (8.4 - 10.2 mg/dL) 9.0 Total Bilirubin (0.2 - 1.3 mg/dL) 1.0 AST (17 - 59 U/L) 24 ALT (21 - 72 U/L) 32 Alkaline Phosphatase (< 127 U/L) 65 Total Protein (6.3 - 8.2 g/dL) 6.8 Albumin (3.5 - 5.0 g/dL) 4.2 Globulin (1.9 - 4.2 gm/dL) 2.6 Albumin/Globulin Ratio (1.1 - 2.2 %) 1.6 Amylase (30 - 110 U/L) 237 H Lipase (23 - 300 U/L) 1270 H Coagulation PT (9.4 - 12.5 SEC) 11.0 INR (0.90 - 1.17) 1.05 APTT (25 - 37 SEC) 28 Hematology CBC w Diff NO MAN DIFF REQ WBC (4.8 - 10.8 /CUMM) 17.7 H RBC (4.70 - 6.10 /CUMM) 5.23 Hgb (14.0 - 18.0 G/DL) 15.9 Hct (42 - 52 %) 46.2 MCV (80.0 - 94.0 FL) 88.2 MCH (27.0 - 31.0 PG) 30.4 RDW (11.5 - 14.5 %) 13.4 Plt Count (130 - 400 /CUMM) 296 MPV (7.4 - 10.4 FL) 7.7 Gran % (42.2 - 75.2 %) 86.3 H Lymphocytes % (20.5 - 51.1 %) 7.5 L Monocytes % (1.7 - 9.3 %) 5.2 Eosinophils % (0 - 5 %) 0.9 Basophils % (0.0 - 2.0 %) 0.1 Absolute Granulocytes (1.4 - 6.5 /CUMM) 15.3 H Absolute Lymphocytes (1.2 - 3.4 /CUMM) 1.3 Absolute Monocytes (0.10 - 0.60 /CUMM) 0.9 H Absolute Eosinophils (0.0 - 0.7 /CUMM) 0.2 Absolute Basophils (0.0 - 0.2 /CUMM) 0 PUBS MCHC (33.0 - 37.0 G/DL) 34.4 Imaging/Other Studies: Stool for Giardia and cryptosporidia pending. Stool for C. difficile toxin pending.
[2017-03-19 09:11] LABS: ABSOLUTE BASOPHIL COUNT 0.1 /CUMM (0.0-0.2); ABSOLUTE EOSINOPHIL COUNT 0.1 /CUMM (0.0-0.7); ABSOLUTE GRANULOCYTE CT 17.9 /CUMM (1.4-6.5); ABSOLUTE LYMPH COUNT 1.7 /CUMM (1.2-3.4); BASOPHIL % 0.3 % (0.0-2.0); EOSINOPHIL % 0.6 % (0-5); HEMATOCRIT 41.3 % (42-52); MEAN CORPUSCULAR HGB 29.8 PG (27.0-31.0); MEAN CORPUSCULAR HGB CONC 33.4 G/DL (33.0-37.0); MEAN CORPUSCULAR VOLUME 89.3 FL (80.0-94.0); MEAN PLATELET VOLUME 7.8 FL (7.4-10.4); PLATELET COUNT 252 /CUMM (130-400); RBC DISTRIBUTION WIDTH 13.3 % (11.5-14.5); RED BLOOD CELL CT 4.62 /CUMM (4.70-6.10); WHITE BLOOD CELL COUNT 20.8 /CUMM (4.8-10.8)
[2017-03-19 10:45] LABS: GRANULOCYTE % 86.2 % (42.2-75.2)
[2017-03-19 15:28] VITALS: BP 108/60
[2017-03-19 22:31] VITALS: BP 140/70
--- NOTE | 2017-03-19 23:33 | NUR ---
LATE ENTRY PATIENT ABD DISTENDED AND FIRM. PATIENT C/O TENDERNESS IN THE LOWER PART OF THE ABD. POSITIVE BS. VS: BP 140/70, PULSE 68, TEMP 99.2, RES 20, O2 SAT 94% PAIN 7 OUT OF 10. IV MORPHINE 2MG ADMINISTERED. PAIN RE-ASSESSED STILL 7 OUT OF 10. PERCOCET WAS ADMINISTERED. THE PAIN HAS IMPROVED. MD WILLETT WAS LEATHA AWARE REGARDING DISTENDED AND FIRM ABD.
[2017-03-20 06:28] VITALS: BP 136/64
--- NOTE | 2017-03-20 07:12 | PN- Housestaff ---
EMMANUEL RIZO,JOSE DE JESUS 03/20/17 0712: Subjective Follow-up For: Colitis BRBPR Subjective: Patient seen and examined. He is seen sitting upright in bed resting comfortably. He appears to be in no acute distress. He reports that his abdominal pain was quite severe last night and was only able to eat "3/4 of a cup of jello" for dinner. He denies any further bowel movements or bright red blood per rectum. Additionally he denies any fever, chills, chest pain, shortness of breath, nausea, vomiting, diarrhea. No overnight events reported. Review of Systems Constitutional: Reports: see HPI. Objective Last 24 Hrs of Vital Signs/I&O Vital Signs Date Time Temp Pulse Resp B/P B/P Pulse O2 O2 Flow FiO2 Mean Ox Delivery Rate 03/20 06 99.1 74 20 136/64 94 Room Air 03/19 2231 99.2 68 20 140/70 94 03/19 1528 98.0 63 20 108/60 94 Intake & Output 03/20 1600 03/20 0800 03/20 0000 Intake Total 600 465 Output Total Balance 600 465 Intake, IV 600 225 Intake, Oral 240 Patient 73.028 kg Weight Physical Exam General Appearance: Alert, Oriented X3, Cooperative, No Acute Distress Other Physical Findings: General- well developed, well nourished elderly man in no acute distress HEENT- NCAT, PERRL, EOMI, anicteric sclera CVS- S1, S2 w/o m/g/r Resp - CTA bilaterally GI- Soft, nontender, nondistended, bowel sounds intact Neuro- Awake and alert, CN II - XII grossly intact Ext- normal pulses, no cyanosis/clubbing/edema Current Medications: Current Medications Sig/Deisy Start time Last Medication Dose Route Stop Time Status Admin Acetaminophen 1,000 MG Q8P PRN 03/17 09 AC 03/20 IV 0431 Ciprofloxacin 500 MG BID 03/18 2200 AC 03/19 PO 03/22 Cyclobenzaprine HCl 7.5 MG DAILY PRN 03/17 0900 AC PO Diphenhydramine HCl 25 MG Q6P PRN 03/17 0845 AC IV Docusate Sodium 100 MG BID 03/17 1000 AC 03/19 PO 2128 Hyoscyamine 0.125 MG Q6-PRN PRN 03/18 2100 AC PO Metronidazole 500 MG Q8 03/19 2200 AC 03/20 PO 0559 Metronidazole 500 MG IQ8 03/19 0000 DC 03/19 N/A 1 UNIT IV 1119 Morphine Sulfate 2 MG Q3P PRN 03/18 1100 AC 03/20 IV 0922 Ondansetron HCl 4 MG Q6P PRN 03/17 0845 AC IV Oxycodone/ 1 TAB Q6P PRN 03/18 1700 AC 03/20 Acetaminophen PO 0816 Polyethylene Glycol 17 GM AT BEDTIME 03/17 2200 AC 03/19 PO 2129 Senna/Docusate Sodium 2 TAB AT BEDTIME 03/17 220 AC 03/19 PO 2127 Sodium Chloride 1,000 ML Q13H 03/18 1500 AC 03/20 IV 0804 Last 24 Hrs of Lab/Justin Results Last 24 Hrs of Labs/Mics: Laboratory Tests 03/20/17 0643: CBC w Diff NO MAN DIFF REQ, RBC 4.67 L, MCV 88.6, MCH 30.0, RDW 13.4, MPV 7.5, Gran % 81.1 H, Lymphocytes % 10.9 L, Monocytes % 6.8, Eosinophils % 1.0, Basophils % 0.2, Absolute Granulocytes 14.7 H, Absolute Lymphocytes 2.0, Absolute Monocytes 1.2 H, Absolute Eosinophils 0.2, Absolute Basophils 0, PUBS MCHC 33.9 Microbiology 03/19 1530 STOOL: Stool Culture - COLB Assessment/Plan Assessment: Patient reports moderate/severe abdominal pain overnight despite taking regular doses of pain medications. He was kept NPO overnight in anticipation of a flexible sigmoidoscopy this morning. His white blood cell count is mildly improved today while on oral antibiotics. Patient tolerated his procedure well; procedure note commented on findings suggestive of ischemic colitis. Patient was started on a diet. Vascular surgery consult was placed and discussed with Dr. Bansal whom felt there was nothing to be added to his care from his prespective and that he may follow up as an outpatient for further elective evaluation. Colitis / Abdominal Pain / BRBPR / Possible Pancreatitis Patient with no known gastrointestinal history but with family history of colon cancer seen for evaluation of cramping suprapubic abdominal pain and bright red blood per rectum. Patient reportedly underwent a screening colonoscopy three weeks prior to admission at [facility] where multiple polyps were removed with pathology results pending. Vital signs upon initial evaluation were within limits. Physical examination was unremarkable, including rectal examination. CBC demonstrated WBC 17.7, Hgb/Hct 15.9/46.2, and normal serum chemistries, Lipase 1270. CT Abd/Pelvis with IV contrast demonstrated diffuse wall thickening of the descending colon consistent with colitis. Patients symptoms, presentation, and imaging findings are highly suggestive of colitis, ischemic versus infectious. Patient does not have any identifiable cardiovascular risk factors predisposing him to ischemic colitis, however it must be ruled out. C. diff negative. -General Medicine -2 large bore IV -Type & cross -Transfuse as needed, maintain hgb > 7.0 -NS @ 75mL/hr -Ciprofloxacin 500mg PO BID -Metronidazole 500mg PO Q8H -Zofran 4mg IV Q6H PRN nausea -Clear liquid diet -GI consult following -GS consult following -Vascular surgery consult -Follow up cultures & sensitivies -Follow up stool ova/parasites Pain Plain-Acetaminophen/Morphine Diet-As above DVT PPx-ALPS/Ambulation Code Status-FULL CODE Problem List: 1. Colitis Pain Ratin Pain Location: Abdomen Pain Goal: Pain 7 or less Pain Plan: See assessment Tomorrow's Labs & Rationales: CBC-colitis BEP/Mg-not eating FIDELIA RIZO,[facility] 03/20/17 1519: Attending MD Review Statement Attending Statement Attending MD Statement: examined this patient, discuss w/resident/PA/SEAM CHECKER, agreed w/resident/PA/SEAM CHECKER, reviewed EMR data (avail), discussed with nursing, discussed with case mgmt, amended to note Attending Assessment/Plan: Patient seen and examined. Complained of mild abdominal cramping overnight and will scheduled to undergo flex sigmoidoscopy today. Procedure was done this morning with findings suggestive of ischemic colitis. He is currently back in his bed and not in any acute distress. He is tolerating a full liquid diet. Denies nausea vomiting. Denies abdominal pain at present. Mild left lower quadrant tenderness on examination. Gastroenterology recommendations noted. Continue full liquid diet overnight. Vascular surgery consultation. Reevaluate clinical status and laboratory data tomorrow. Awaiting results of pathology from polypectomy done at [facility].
[2017-03-20 07:43] LABS: ABSOLUTE BASOPHIL COUNT 0 /CUMM (0.0-0.2); ABSOLUTE EOSINOPHIL COUNT 0.2 /CUMM (0.0-0.7); ABSOLUTE GRANULOCYTE CT 14.7 /CUMM (1.4-6.5); ABSOLUTE MONOCYTE COUNT 1.2 /CUMM (0.10-0.60); BASOPHIL % 0.2 % (0.0-2.0); GRANULOCYTE % 81.1 % (42.2-75.2); HEMATOCRIT 41.3 % (42-52); MEAN CORPUSCULAR HGB CONC 33.9 G/DL (33.0-37.0); MEAN CORPUSCULAR VOLUME 88.6 FL (80.0-94.0); MEAN PLATELET VOLUME 7.5 FL (7.4-10.4); PLATELET COUNT 264 /CUMM (130-400); RBC DISTRIBUTION WIDTH 13.4 % (11.5-14.5); RED BLOOD CELL CT 4.67 /CUMM (4.70-6.10); WHITE BLOOD CELL COUNT 18.1 /CUMM (4.8-10.8)
--- NOTE | 2017-03-20 10:18 | NUR ---
PT LEFT FLOOR FOR PROCEDURE IN GI.
--- NOTE | 2017-03-20 12:07 | Proc Note Colonoscopy ---
Colonoscopy Procedure Procedure Date: 03/20/17 Procedure Type: colonoscopy w/biopsy Surgical Elastic Knitter Hand Frame: Klaus Zamora M.D. ASA Classification: III Indications: Pain/diarrhea/hematochezia Instrument (Colonoscope): single channel Meds Received: MAC Patient's Tolerance: good Complications: none Extent Reached: cecum Prep: unprepped Procedure: The patient signed informed consent, was placed in the Barney position, and medicated. Examination of the rectum was normal. The Olympus high-definition variable stiffness colonoscope was inserted through the anus and advanced to the cecum, identified by the appendiceal orifice and ileocecal valve. Retroflexion was performed in order to examine the rectum. Findings: Within the rectum there were scattered foci of erythema. The mucosa and vasculature of the sigmoid was normal. Between 28 and 45 cm (the area of the splenic flexure) the mucosa was erythematous (occasionally deeply), alternating with pallor. There was exudate, scattered ulceration, and firmness to prodding with biopsy forceps. There was no friability or hemorrhage. Proximal to this and extending to the cecum, the mucosa and vasculature were normal without gross colitis. Biopsies were obtained from rectum, 20 cm, 30 cm, 40 cm, 55 cm ( transverse colon), and ascending colon. Stool was collected for culture. Impression: * Segmental colitis, with distribution and appearance consistent with ischemic colitis. Recommendations: * Await pathology * Await stool culture * Begin full liquid diet with polymeric supplements * Dicyclomine 10-20 mg by mouth 4 times a day (before meals, and at bedtime); discontinue hyoscyamine * Follow-up CBC tomorrow CC: RAFFY RIZO,ROULA SALDANA MD,DAVEY Bonner
[2017-03-20 13:29] VITALS: BP 96/52
--- NOTE | 2017-03-20 22:00 | NUR ---
NURSING NOTE: PATIENT'S BP 88/58 @ 2200. CORDWOOD CUTTER HELPER BRENNON NOTIFIED. INCREASE IV FLUIDS TO 150ML/HR PER CORDWOOD CUTTER HELPER AND RECHECK BP IN 1 HOUR.
[2017-03-20 22:20] VITALS: BP 88/58
--- NOTE | 2017-03-21 | NUR ---
NURSING NOTE: BP 94/58 @ 0000. PATIENT IS ASYMTOMATIC. WITH NO C/O LIGHT HEADEDNESS. GRADES 9 THRU 12 VISITING TEACHER IS NOTIFIED. GRADES 9 THRU 12 VISITING TEACHER WILL BE UP TO ASSESS PATIENT SHORTLY.
[2017-03-21 06:45] VITALS: BP 112/66
--- NOTE | 2017-03-21 07:05 | PN- Housestaff ---
EMMANUEL RIZO,JOSE DE JESUS 03/21/17 0705: Subjective Follow-up For: Colitis BRBPR Subjective: Patient seen and examined. He is seen lying flat in bed resting comfortably. He appears to be in no acute distress. He reports eating come "potato soup" last night, but does state he has some assocaited abdominal discomfort. Otherwise he feels well and has no new subjective complaints. He denies delmy further episodes of rectal bleeding. Additionally he denies any fever, chills, chest pain, shortness of breath, nausea, vomiting, diarrhea. Overnight patient was noted to have a low blood pressure to 88 systolic for which his fluid rate was increased for several hours. Repeat blood pressure was reportedly around 120 systolic. Review of Systems Constitutional: Reports: see HPI. Objective Last 24 Hrs of Vital Signs/I&O Vital Signs Date Time Temp Pulse Resp B/P B/P Pulse O2 O2 Flow FiO2 Mean Ox Delivery Rate 03/21 0645 98.7 67 18 112/66 97 Room Air 03/20 2220 98.9 62 18 88/58 93 Room Air 03/20 1329 98.0 58 16 96/52 93 Room Air Intake & Output 03/21 1600 03/21 0800 03/21 0000 Intake Total 1200 660 Output Total Balance 1200 660 Intake, IV 1200 300 Intake, Oral 360 Number 0 0 Bowel Movements Physical Exam General Appearance: Alert, Oriented X3, Cooperative, No Acute Distress Other Physical Findings: General- well developed, well nourished elderly man in no acute distress HEENT- NCAT, PERRL, EOMI, anicteric sclera CVS- S1, S2 w/o m/g/r Resp - CTA bilaterally GI- Soft, nontender, nondistended, bowel sounds intact Neuro- Awake and alert, CN II - XII grossly intact Ext- normal pulses, no cyanosis/clubbing/edema Current Medications: Current Medications Sig/Deisy Start time Last Medication Dose Route Stop Time Status Admin Acetaminophen 1,000 MG Q8P PRN 03/17 09 AC 03/20 IV 0431 Chlorhexidine 1 GM .STK-MED ONE 03/20 1425 DC Gluconate TOP 03/20 1426 Ciprofloxacin 500 MG BID 03/180 AC 03/20 PO 03/22 2159 210 Cyclobenzaprine HCl 7.5 MG DAILY PRN 03/17 0900 AC PO Dicyclomine HCl 20 MG TIDAC/HS 03/20 1700 AC 03/21 PO 0740 Diphenhydramine HCl 25 MG Q6P PRN 03/17 0845 AC IV Docusate Sodium 100 MG BID 03/17 1000 AC 03/20 PO 2104 Hyoscyamine 0.125 MG Q6-PRN PRN 03/18 2100 DC PO Metronidazole 500 MG Q8 03/19 2200 AC 03/21 PO 0507 Morphine Sulfate 2 MG Q3P PRN 03/18 1100 AC 03/21 IV 0741 Ondansetron HCl 4 MG Q6P PRN 03/17 0845 AC 03/20 IV 2040 Oxycodone/ 1 TAB Q6P PRN 03/18 1700 AC 03/21 Acetaminophen PO 0508 Patient Medication 1 ED .STK-MED ONE 03/20 1411 NE Teaching ED 03/20 1412 Polyethylene Glycol 17 GM AT BEDTIME 03/17 2200 AC 03/20 PO 2103 Senna/Docusate Sodium 2 TAB AT BEDTIME 03/17 2200 AC 03/20 PO 2105 Sodium Chloride 1,000 ML Q13H 03/18 1500 AC 03/21 IV 0508 Last 24 Hrs of Lab/Justin Results Last 24 Hrs of Labs/Mics: Laboratory Tests 03/21/17 0640: Anion Gap 11, Estimated GFR > 60, BUN/Creatinine Ratio 7.5, Magnesium 1.9, CBC w Diff NO MAN DIFF REQ, RBC 4.12 L, MCV 87.6, MCH 30.0, RDW 13.3, MPV 7.6, Gran % 76.1 H, Lymphocytes % 13.6 L, Monocytes % 8.2, Eosinophils % 1.6, Basophils % 0.5, Absolute Granulocytes 8.1 H, Absolute Lymphocytes 1.4, Absolute Monocytes 0.9 H, Absolute Eosinophils 0.2, Absolute Basophils 0.1, PUBS MCHC 34.2 Microbiology 03/20 1208 GI FROM OR: Stool Culture - RECD Assessment/Plan Assessment: Patient reports eating his dinner last night with minimal associated discomfort. His blood pressure was noted to be low yesterday, but subsequently normalized. Intravenous fluids were discontinued as patient is now eating/drinking. Orthostat blood pressures are within normal limits. Repeat EKG done today demostrated normal sinus rhythm. CBC demonstrated resolution of his leukocytosis with stable hemoglobin/hematocrit. He is continued on oral antibiotics. He is an anticipated discharge to home tomorrow. GI recommendations pending. Colitis / Abdominal Pain / BRBPR / Possible Pancreatitis Patient with no known gastrointestinal history but with family history of colon cancer seen for evaluation of cramping suprapubic abdominal pain and bright red blood per rectum. Patient reportedly underwent a screening colonoscopy three weeks prior to admission at [facility] where multiple polyps were removed with pathology results pending. Vital signs upon initial evaluation were within limits. Physical examination was unremarkable, including rectal examination. CBC demonstrated WBC 17.7, Hgb/Hct 15.9/46.2, and normal serum chemistries, Lipase 1270. CT Abd/Pelvis with IV contrast demonstrated diffuse wall thickening of the descending colon consistent with colitis. Patients symptoms, presentation, and imaging findings are highly suggestive of colitis, ischemic versus infectious. Patient does not have any identifiable cardiovascular risk factors predisposing him to ischemic colitis, however it must be ruled out. C. diff negative. -General Medicine -2 large bore IV -Type & cross -Transfuse as needed, maintain hgb > 7.0 -NS @ 75mL/hr -Ciprofloxacin 500mg PO BID -Metronidazole 500mg PO Q8H -Zofran 4mg IV Q6H PRN nausea -Clear liquid diet -GI consult following -GS consult following -Vascular surgery consult -Follow up cultures & sensitivies -Follow up stool ova/parasites Pain Plain-Acetaminophen/Morphine Diet-As above DVT PPx-ALPS/Ambulation Code Status-FULL CODE Problem List: 1. Colitis Pain Ratin Pain Location: Abdomen Pain Goal: Pain 7 or less Pain Plan: See assessment Tomorrow's Labs & Rationales: CBC BEP EAN MISTRY MD 03/21/17 1141: Attending MD Review Statement Attending Statement Attending MD Statement: examined this patient, discuss w/resident/PA/BOMB LOADER, agreed w/resident/PA/BOMB LOADER, discussed with family, reviewed EMR data (avail), discussed with nursing, discussed with case mgmt, amended to note Attending Assessment/Plan: patient seen and examined. Lying comfortably in bed and not in acute distress. Tolerating full liquid diet this morning. He however continues to complain of left lower abdominal cramping. He is hesitant to leave the hospital due to ongoing cramping. He is having bowel movements are reported mild streak of bloody stools yesterday. Is otherwise hemodynamically stable. He is afebrile. His leukocytosis has resolved. On examination abdomen is mildly bloated, soft, nontender with normal bowel sounds. He was mildly hypotensive yesterday but this has improved with fluid hydration. Recommendations: -Advance to low fiber diet as recommended by the GI service. -Continue empiric antibiotic coverage while admitted. -Case was discussed with vascular surgery service. Recommendations for now outpatient follow-up. -Monitor patient off IV hydration today. Check orthostatic blood pressure. -If he remains hemodynamically stable and tolerates his at times that today he may be discharged tomorrow morning. -Supplementing potassium orally. Repeat CBC tomorrow morning to ensure his white count remains normal and that his hemoglobin level is stable.
[2017-03-21 07:58] LABS: ABSOLUTE EOSINOPHIL COUNT 0.2 /CUMM (0.0-0.7); MEAN CORPUSCULAR VOLUME 87.6 FL (80.0-94.0)
[2017-03-21 08:19] LABS: ABSOLUTE BASOPHIL COUNT 0.1 /CUMM (0.0-0.2); ABSOLUTE GRANULOCYTE CT 8.1 /CUMM (1.4-6.5); ABSOLUTE LYMPH COUNT 1.4 /CUMM (1.2-3.4); ABSOLUTE MONOCYTE COUNT 0.9 /CUMM (0.10-0.60); BASOPHIL % 0.5 % (0.0-2.0); EOSINOPHIL % 1.6 % (0-5); GRANULOCYTE % 76.1 % (42.2-75.2); MEAN CORPUSCULAR HGB CONC 34.2 G/DL (33.0-37.0); MEAN PLATELET VOLUME 7.6 FL (7.4-10.4); PLATELET COUNT 247 /CUMM (130-400); RBC DISTRIBUTION WIDTH 13.3 % (11.5-14.5); RED BLOOD CELL CT 4.12 /CUMM (4.70-6.10); WHITE BLOOD CELL COUNT 10.6 /CUMM (4.8-10.8)
[2017-03-21 08:20] VITALS: BP 110/70
[2017-03-21 08:23] LABS: HEMATOCRIT 36.1 % (42-52)
--- NOTE | 2017-03-21 09:08 | Patient Discharge Instructions ---
Discharge Instructions General Discharge Information Special Instructions: Follow up with your primary care provider, Dr Zamora, and Dr. Bansal (Vascular Surgeon) after discharge. Take Dicyclomine up to four times a day as needed for abdominal discomfort. Follow up with your gastroenterolgist at [facility] or Dr. Klaus Zamora within 10 days. Follow a low fiber diet until otherwise directed. Call 911 or return to the ED should your symptoms return. Acute Coronary Syndrome Inclusion Criteria At DC or during hospital stay patient has or had the following: ACS DIAGNOSIS No Discharge Core Measures Meds if any: Prescribed or Continued at Discharge Meds if any: NOT Prescribed or Continued at Discharge Congestive Heart Failure Inclusion Criteria At DC or during hospital stay patient has or had the following: CHF DIAGNOSIS No Discharge Core Measures Meds if any: Prescribed or Continued at Discharge Meds if any: NOT Prescribed or Continued at Discharge Cerebrovascular accident Inclusion Criteria At DC or during hospital stay patient has or had the following: CVA/TIA Diagnosis No Discharge Core Measures Meds if any: Prescribed or Continued at Discharge Meds if any: NOT Prescribed or Continued at Discharge Venous thromboembolism Inclusion Criteria VTE Diagnosis No VTE Type NONE VTE Confirmed by (Test) NONE Discharge Core Measures - Per Current guidelines, there needs to be overlap - treatment for the first 5 days of Warfarin therapy. - If discharged on Warfarin prior to 5 days of - overlap therapy, the patient will need to be - assessed for post discharge needs including - *Post discharge parental anticoagulation - *Warfarin and/or parental anticoagulation education - *Follow up date to check INR post discharge At least 5 days overlap therapy as Inpatient No Meds if any: Prescribed or Continued at Discharge Note: Overlap Therapy is Warfarin and Anticoagulant Meds if any: NOT Prescribed or Continued at Discharge
[2017-03-21 11:00] VITALS: BP 102/72
[2017-03-21 15:20] VITALS: BP 98/62
[2017-03-21 22:00] VITALS: BP 110/66
--- NOTE | 2017-03-22 06:01 | PN- Housestaff ---
Subjective Follow-up For: Colitis BRBPR Subjective: Patient seen and examined. He is seen lying flat resting comfortably. He appears to be in no acute distress. He reports that his abdominal pain has resolved and denies any further episodes of rectal bleeding. He is tolerated is low fiber diet well and is requesting to be discharged. He admits to a lose brown nonbloody bowel movement this morning. Additionally he denies any fever, chills, chest pain, shortness of breath, nausea, vomiting, diarrhea. No overnight events reported. Review of Systems Constitutional: Reports: see HPI. Objective Last 24 Hrs of Vital Signs/I&O Vital Signs Date Time Temp Pulse Resp B/P B/P Pulse O2 O2 Flow FiO2 Mean Ox Delivery Rate 03/22 0641 99.3 69 20 116/62 95 Room Air 03/21 2200 98.3 61 20 110/66 95 Room Air 03/21 1520 99.1 63 20 98/62 94 / 1100 64 102/72 Intake & Output 03/22 1600 03/22 0800 03/22 0000 Intake Total 200 Output Total 450 Balance -250 Intake, Oral 200 Output, Urine 450 Physical Exam General Appearance: Alert, Oriented X3, Cooperative, No Acute Distress Other Physical Findings: General- well developed, well nourished elderly man in no acute distress HEENT- NCAT, PERRL, EOMI, anicteric sclera CVS- S1, S2 w/o m/g/r Resp - CTA bilaterally GI- Soft, nontender, nondistended, bowel sounds intact Neuro- Awake and alert, CN II - XII grossly intact Ext- normal pulses, no cyanosis/clubbing/edema Current Medications: Current Medications Sig/Deisy Start time Last Medication Dose Route Stop Time Status Admin Acetaminophen 650 MG Q4P PRN 03/21 0900 AC 03/21 PO 1354 Ciprofloxacin 500 MG BID 03/180 AC 03/22 PO 03/22 2159 0823 Cyclobenzaprine HCl 7.5 MG DAILY PRN 03/17 0900 AC PO Dicyclomine HCl 20 MG TIDAC/HS 03/20 1700 AC 03/22 PO 0823 Diphenhydramine HCl 25 MG Q6P PRN 03/17 0845 AC IV Docusate Sodium 100 MG BID 03/17 1000 AC 03/21 PO 2049 Metronidazole 500 MG Q8 03/19 2200 AC 03/22 PO 0646 Ondansetron HCl 4 MG Q6P PRN 03/17 0845 AC 03/20 IV 2040 Oxycodone HCl 5 MG Q6P PRN 03/21 0900 AC 03/22 PO 0823 Oxycodone HCl 10 MG Q6P PRN 03/21 0900 AC PO Polyethylene Glycol 17 GM AT BEDTIME 03/17 2200 AC 03/21 PO 205 Senna/Docusate Sodium 2 TAB AT BEDTIME 03/17 2200 AC 03/21 PO 204 Sodium Chloride 1,000 ML Q13H 03/18 1500 DC 03/21 IV 0508 Last 24 Hrs of Lab/Justin Results Last 24 Hrs of Labs/Mics: Laboratory Tests 03/22/17 0715: Anion Gap 15, Estimated GFR > 60, BUN/Creatinine Ratio 6.7 L, Magnesium 1.8, CBC w Diff Pending, WBC Pending, RBC Pending, Hgb Pending, Hct Pending, MCV Pending, MCH Pending, RDW Pending, Plt Count Pending, MPV Pending, PUBS MCHC Pending Assessment/Plan Assessment: Patient reports eating his dinner last night with minimal associated discomfort. His blood pressure was noted to be low yesterday, but subsequently normalized. Intravenous fluids were discontinued as patient is now eating/drinking. Orthostat blood pressures are within normal limits. Repeat EKG done today demostrated normal sinus rhythm. CBC demonstrated resolution of his leukocytosis with stable hemoglobin/hematocrit. He is continued on oral antibiotics. He is an anticipated discharge to home tomorrow. GI recommendations pending. Colitis / Abdominal Pain / BRBPR / Possible Pancreatitis Patient with no known gastrointestinal history but with family history of colon cancer seen for evaluation of cramping suprapubic abdominal pain and bright red blood per rectum. Patient reportedly underwent a screening colonoscopy three weeks prior to admission at [facility] where multiple polyps were removed with pathology results pending. Vital signs upon initial evaluation were within limits. Physical examination was unremarkable, including rectal examination. CBC demonstrated WBC 17.7, Hgb/Hct 15.9/46.2, and normal serum chemistries, Lipase 1270. CT Abd/Pelvis with IV contrast demonstrated diffuse wall thickening of the descending colon consistent with colitis. Patients symptoms, presentation, and imaging findings are highly suggestive of colitis, ischemic versus infectious. Patient does not have any identifiable cardiovascular risk factors predisposing him to ischemic colitis, however it must be ruled out. C. diff negative. -General Medicine -2 large bore IV -Type & cross -Transfuse as needed, maintain hgb > 7.0 -NS @ 75mL/hr -Ciprofloxacin 500mg PO BID -Metronidazole 500mg PO Q8H -Zofran 4mg IV Q6H PRN nausea -Clear liquid diet -GI consult following -GS consult following -Vascular surgery consult -Follow up cultures & sensitivies -Follow up stool ova/parasites Pain Plain-Acetaminophen/Morphine Diet-As above DVT PPx-ALPS/Ambulation Code Status-FULL CODE Problem List: 1. Ischemic colitis Pain Ratin Pain Location: None Pain Goal: Remain pain free Pain Plan: See assessment Tomorrow's Labs & Rationales: None
[2017-03-22 06:41] VITALS: BP 116/62
[2017-03-22] MEDS ORDERED: BENTYL10 M1 PO (08:40)
[2017-03-22 08:47] LABS: ABSOLUTE EOSINOPHIL COUNT 0.2 /CUMM (0.0-0.7); ABSOLUTE LYMPH COUNT 1.8 /CUMM (1.2-3.4); MEAN CORPUSCULAR HGB 29.9 PG (27.0-31.0); RBC DISTRIBUTION WIDTH 13.6 % (11.5-14.5); RED BLOOD CELL CT 4.89 /CUMM (4.70-6.10); WHITE BLOOD CELL COUNT 9.3 /CUMM (4.8-10.8)
[2017-03-22 09:44] LABS: ABSOLUTE BASOPHIL COUNT 0 /CUMM (0.0-0.2); ABSOLUTE GRANULOCYTE CT 6.3 /CUMM (1.4-6.5); BASOPHIL % 0.5 % (0.0-2.0); EOSINOPHIL % 1.8 % (0-5); GRANULOCYTE % 67.6 % (42.2-75.2); MEAN CORPUSCULAR HGB CONC 34.2 G/DL (33.0-37.0); MEAN CORPUSCULAR VOLUME 87.5 FL (80.0-94.0); MEAN PLATELET VOLUME 7.8 FL (7.4-10.4); PLATELET COUNT 299 /CUMM (130-400)
[2017-03-22 09:52] LABS: HEMATOCRIT 42.8 % (42-52)
[2017-03-22] MEDS ORDERED: DULCOLAX5 M1 PO (11:40)
--- NOTE | 2017-03-22 13:45 | Discharge Summary ---
Visit Information Visit Dates Admission Date: 03/17/17 Discharge Date: 03/22/17 Hospital Course Course Attending Physician: EAN MISTRY M.D Primary Care Physician: ROULA AKBAR MD Consulting Request: 1 Consulting Specialty: Gastroenterology Consulting Request: 2 Consulting Specialty: General Surgery Hospital Course: 66 year old man with past medical history of chronic back pain and vasovagal syncope seen for evaluation of abdominal pain. Pain was located diffusely throughout the abdomen but was particularly worse in the suprapubic area associated with tenesmus, bright red blood per rectum, and dizziness. He denied any melena, NSAID/antibiotic use. Patient had a screening colonoscopy 3 weeks prior to admission at [facility] for which 3 polyps were removed. ED Course: -Vitals: Temp 96.3-98.0, HR 60-66, RR 16-30, BP 125-142/65-92, O2 96-100% on Room air -Significant Labs: WBC 17.7, Hgb/Hct 15.9/46.2, Plt 296, K 3.3, BUN/Cr 23/0.9, Lipase 1270, Amylase 237 -Studies: CT Abd/Pelvis with contrast - diffuse wall thickening of descending colon consistent with coloitis, EKG-NSR Colitis / Abdominal Pain / BRBPR / Possible Pancreatitis Patient with no known gastrointestinal history but with family history of colon cancer seen for evaluation of cramping suprapubic abdominal pain and bright red blood per rectum. Patient reportedly underwent a screening colonoscopy three weeks prior to admission at [facility] where multiple polyps were removed with pathology results pending. Vital signs upon initial evaluation were within limits. Physical examination was unremarkable, including rectal examination. CBC demonstrated WBC 17.7, Hgb/Hct 15.9/46.2, and normal serum chemistries, Lipase 1270. CT Abd/Pelvis with IV contrast demonstrated diffuse wall thickening of the descending colon consistent with colitis. Patients symptoms, presentation, and imaging findings are highly suggestive of colitis, ischemic versus infectious. Patient does not have any identifiable cardiovascular risk factors predisposing him to ischemic colitis, however it must be ruled out. C. diff negative. Patient was initially treated with intravenous Unasyn, but was converted to Ciprofloxacin/Flagyl for suspicion of ishemic colitis. He leukocytosis and abdominal pain improved shortly there after. Patient was evaluated by gastroenterology whom performed a flexible sigmoidoscopy that demonstrated findings suggestive of ischemic colitis. Case was discussed with vascular surgeon Dr. Bansal whom felt that patient did not require any further inpatient intervention or evaluation and should be seen as an outpatient. Patient was discharged to home after resoluton of his symptoms with instruction to follow a low fiber diet and to follow up with his therapeutic radiologist and the vascular surgeon after discharge. Allergies: Coded Allergies: No Known Allergies (03/17/17) Significant Procedures: Colonoscopy Procedure Procedure Date: 03/20/17 Procedure Type: colonoscopy w/biopsy Jewelry Technician: Kiersten Zamora M.D. ASA Classification: III Indications: Pain/diarrhea/hematochezia Instrument (Colonoscope): single channel Meds Received: MAC Patient's Tolerance: good Complications: none Extent Reached: cecum Prep: unprepped Procedure: The patient signed informed consent, was placed in the Barney position, and medicated. Examination of the rectum was normal. The Olympus high-definition variable stiffness colonoscope was inserted through the anus and advanced to the cecum, identified by the appendiceal orifice and ileocecal valve. Retroflexion was performed in order to examine the rectum. Findings: Within the rectum there were scattered foci of erythema. The mucosa and vasculature of the sigmoid was normal. Between 28 and 45 cm (the area of the splenic flexure) the mucosa was erythematous (occasionally deeply), alternating with pallor. There was exudate, scattered ulceration, and firmness to prodding with biopsy forceps. There was no friability or hemorrhage. Proximal to this and extending to the cecum, the mucosa and vasculature were normal without gross colitis. Biopsies were obtained from rectum, 20 cm, 30 cm, 40 cm, 55 cm ( transverse colon), and ascending colon. Stool was collected for culture. Impression: Segmental colitis, with distribution and appearance consistent with ischemic colitis. SERVICE DATE: 03/17/17 EXAM TYPE: CAT - CT ABD & PELVIS W IV CONTRAST IMPRESSION: Diffuse wall thickening of the descending colon, consistent with colitis. Disposition Summary Disposition Principal Diagnosis: Ischemic colitis Additional Diagnosis: Bright red blood per rectum Discharge Disposition: home or self care Discharge Instructions General Discharge Information Code Status: Full Code Patient's Diet: Low Fiber Diet Patient's Activity: Return to full activity as tolerated Follow-Up Instructions/Appts: Follow up with your primary care provider, Dr Zamora, and Dr. Bansal (Vascular Surgeon) after discharge. Take Dicyclomine up to four times a day as needed for abdominal discomfort. Follow up with your gastroenterolgist at [facility] or Dr. Kiersten Zamora within 10 days. Follow a low fiber diet until otherwise directed. Call 911 or return to the ED should your symptoms return Medications at Discharge Discharge Medications: Continue taking these medications: Oxycodone HCl/Acetaminophen (Oxycodone-Acetaminophen 10-325) 10 MG-325 MG TABLET 1 Tablet ORAL THREE TIMES A DAY NEEDED Qty = 60 Cyclobenzaprine HCl (Cyclobenzaprine HCl) 7.5 MG TABLET 1 Tablet ORAL DAILY as needed for BACKPAIN Start taking the following new medications: Dicyclomine Hydrochloride (Bentyl) 10 MG CAPSULE 1 Capsule ORAL THREE TIMES DAILY as needed for ABDOMINAL DISCOMFORT Qty = 90 No Refills Comments: Last Taken: 03/22/17 Time: 1200 Bisacodyl (Dulcolax) 5 MG TABLET.DR 1 Tablet ORAL DAILY as needed for CONSTIPATION Qty = 4 No Refills Copies To: RAFFY RIZO,ROULA Odonnell; KENTRELL RIZO,KIERSTEN Jimenez; DIPAK RIZO,LEONARDO
== END 2017-03-22 13:40 | DRG 394 ==
LOC: ERH 02:42 → 2NA 08:39 → ERHI 08:39 → ENRESERV 09:03 → 2NA 10:17 → ENPENDDIS 03-22 11:57 → 2NA 03-22 13:40
PROVIDERS: Emergency Medicine; Internal Medicine Hematology & Oncology; Internal Medicine Interventional Cardiology; ADMIT Internal Medicine
PROC: 0DBL8ZX Excision of Transverse Colon, Via Natural or Artificial Opening Endoscopic, Diagnostic (ICD-10-PCS; principal; 2017-03-20)
PROC: 0DBP8ZX Excision of Rectum, Via Natural or Artificial Opening Endoscopic, Diagnostic (ICD-10-PCS; principal; 2017-03-20)
PROC: 0DBK8ZX Excision of Ascending Colon, Via Natural or Artificial Opening Endoscopic, Diagnostic (ICD-10-PCS; principal; 2017-03-20)
DX: K55.9 Vascular disorder of intestine, unspecified (principal); B19.10 Unspecified viral hepatitis B without hepatic coma; Z80.0 Family history of malignant neoplasm of digestive organs
CPT/HCPCS: 2NASP; 74177; 82436; 87045; 87328; 87329; 88305; 93005; 93010; 96374; 96376; J0131; J1200; J2405; J7120